=== PATIENT | female | born 1990 | race Caucasian/White ===

== ENCOUNTER 2017-10-27 07:47 | Emergency (ER) | payer SELFPAY ==
--- OUTSIDE RECORDS SUMMARY | 2017-10-27 07:49 | XMS REPORT ---
:1990 Author Organization [employer] Care Team Providers Name Role Phone Yaw Corrales Provider Role Unavailable Allergies, Adverse Reactions, Alerts Substance Reaction Event Type N.K.D.A. Info Not Available Non Drug Allergy Problems Problem Type Condition Code Onset Dates Condition Status Problem Pelvic pain R10.2 Active Problem Encounter for gynecological Z01.419 Active examination without abnormal finding Problem control counseling Z30.09 Active Assessment Pelvic pain R10.2 Active Problem Reactive depression F32.9 Active Assessment control counseling Z30.09 Active Medications No Known Medications Results Name Result Date Reference Range Unit Abnormality Flag TEST URINE ----RESULTS NEG 20170728 URINALYSIS AUTO W/O SCOPE (30740) ----PROTEIN NEG 20170728 ----pH 5.5 20170728 ----NIT NEG 20170728 ----ABBY NEG 20170728 ----URO 0.2 20170728 ----SPECIFIC GRAVITY 1.030 20170728 ----BLO NEG 20170728 ----BILIRUBIN NEG 20170728 ----KETONES NEG 20170728 ----GLUCOSE NEG 20170728 Summary Purpose [employer] Submission
--- OUTSIDE RECORDS SUMMARY | 2017-10-27 07:49 | XMS REPORT ---
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
[2017-10-27 08:40] LABS: Absolute Lymphocytes (CBC) 2.5 K/uL (0.7-4.9); Absolute Monocytes 0.5 K/uL (0.1-1.3); Absolute Neutrophil 3.5 K/uL (1.8-8.0); Basophils % 1.1 % (0-1.3); Eosinophils % 0.5 % (0-4.4); Hematocrit 36.7 % (36.0-45.0); Lymphocytes % 37.8 % (15.3-44.8); MCH 30.9 pg (27.0-35.0); MCV 88.4 fL (80-100); MPV 8.6 fL (7.6-11.3); RBC Red Blood Cell Count 4.15 M/uL (3.86-4.86)
[2017-10-27 09:39] LABS: BUN Blood Urea Nitrogen 7 mg/dL (7-18); Bicarbonate 25 mmol/L (21-32); Glucose Level 88 mg/dL (74-106); HCG, Quantitative 43 mIU/mL (1-3); Potassium 3.5 mmol/L (3.5-5.1); Sodium Level 138 mmol/L (136-145)
--- NOTE | 2017-10-27 10:57 | RAD REPORT ---
EXAM DESCRIPTION: US - Transvaginal OB - 10/27/2017 10:39 am CLINICAL HISTORY: Positive study, beta HCG 43, abdominal pain pelvic cramping COMPARISON: None. TECHNIQUE: Endovaginal sonography performed. FINDINGS: Endometrial stripe is approximately 14 mm. There is no gestational sac or sac remnant iden tifiable within the uterus. Uterus is retroflexed. No myometrial mass identifiable. Both ovaries are identifiable. There is a 15 millimeter involuting or complex right ovarian cyst. No adnexal mass to s uspect ectopic . No fallopian tube dilatation. Uterus is 7.6 x 5.8 x 5.9 cm. Doppler evaluat ion shows normal blood flow within the ovarian stroma. No abnormal blood or fluid collection in the cul-de-sac. IMPRESSION: No intrauterine gestational sac or sac remnant identifiable. No endometrial abnormality. No adnexal mass or other abnormality to suspect ectopic . Provided history indicated a very low beta HCG value. Follow-up sonography could be performed if ther e are rising HCG values and continued symptoms.
--- NOTE | 2017-10-27 11:04 | ER ---
Nurse's Notes [facility] Name: Clementine Pope Age: 26 yrs Sex: Female : 1990 Arrival Date: 10/27/2017 Time: 07:50 Bed DIS1 Private MD: None, None Diagnosis: Less than 8 weeks gestation of Presentation: 10/27 07:58 Presenting complaint: Patient states: had positive UPT on Monday, started having iw vaginal bleeding and abd pain this morning, bleeding was similar to a period but tapered off. Transition of care: patient was not received from another setting of care. Onset of symptoms was October 27, 2017. Risk Assessment: Do you want to hurt yourself or someone else? Patient reports no desire to harm self or others. Initial Sepsis Screen: Does the patient meet any 2 criteria? No. Patient's initial sepsis screen is negative. Does the patient have a suspected source of infection? No. Patient's initial sepsis screen is negative. Care prior to arrival: None. 07:58 Method Of Arrival: Ambulatory 07:58 Acuity: PRANAY 3 iw METAL WELDER: 08:00 4, Full Term 3, Premature 0, 0, Living 3, LMP 09/18/2017 iw 08:08 4, 0, Living 3, LMP 09/18/2017 kb Historical: - Allergies: 08:00 No Known Allergies; iw - Home Meds: 08:00 None [Active]; iw - PMHx: 08:00 Anxiety; Ovarian cyst; PID; iw - PSHx: 08:01 Appendectomy; ovarian cyst; iw - Immunization history:: Adult Immunizations. - Ebola Screening: : Patient negative for fever greater than or equal to 101.5 degrees Fahrenheit, and additional compatible Ebola Virus Disease symptoms Patient denies exposure to infectious person Patient denies travel to an Ebola-affected area in the 21 days before illness onset No symptoms or risks identified at this time. Screenin:00 Abuse screen: Denies threats or abuse. Denies injuries from another. Nutritional jl7 screening: No deficits noted. Tuberculosis screening: No symptoms or risk factors identified. Fall Risk IV access (20 points). Total Penn Fall Scale indicates No Risk (0-24 pts). Assessment: 08:00 Obstetrical Assessment: Patient reports Abdominal pain. General: Appears in no apparent jl7 distress. uncomfortable, Behavior is calm, cooperative, appropriate for age. Pain: Complains of pain in left upper quadrant and left lower quadrant Pain does not radiate. Pain currently is 6 out of 10 on a pain scale. Neuro: Level of Consciousness is awake, alert, obeys commands, Oriented to person, place, time, situation. Cardiovascular: Patient's skin is warm and dry. Respiratory: Airway is patent Respiratory effort is even, unlabored, Respiratory pattern is regular, symmetrical. GI: Abdomen is flat, non-distended, Abd is soft X 4 quads Abdomen is tender to palpation in left upper quadrant. : Urine is clear, Reports vaginal bleeding that is bright red. EENT: No signs and/or symptoms were reported regarding the EENT system. Derm: Skin is pink, warm \T\ dry. Musculoskeletal: No signs and/or symptoms reported regarding the musculoskeletal system. 09:00 Reassessment: No changes from previously documented assessment. Patient and/or family jl7 updated on plan of care and expected duration. Pain level reassessed. Patient is alert, oriented x 3, equal unlabored respirations, skin warm/dry/pink. 10:00 Reassessment: Patient and/or family updated on plan of care and expected duration. Pain jl7 level reassessed. Patient is alert, oriented x 3, equal unlabored respirations, skin warm/dry/pink. 11:00 Reassessment: Pt will be discharged once RhoGAM is received from blood bank. jl7 Vital Signs: 08:00 BP 108 / 84; Pulse 73; Resp 16; Temp 98.2; Pulse Ox 100% on R/A; iw 09:18 BP 103 / 65; Pulse 72; Resp 17; Pulse Ox 99% on R/A; tw2 10:09 BP 103 / 61; Pulse 70; Resp 16 S; Pulse Ox 100% on R/A; jl7 11:00 BP 103 / 64; Pulse 71; Resp 16; Pulse Ox 100% ; jl7 12:00 BP 104 / 69; Pulse 70; Resp 16; Pulse Ox 100% ; jl7 12:47 BP 102 / 68; Pulse 69; Resp 16; Pulse Ox 98% ; jl7 ED Course: 07:50 Patient arrived in ED. mr 07:50 None, None is Private Physician. mr 07:54 [facility] kb 07:54 Louie Sweet MD is Attending Physician. kb 07:55 Greta Heard, RN is Primary Nurse. jl7 07:59 Triage completed. iw 08:00 Arm band placed on. iw 08:00 Patient has correct armband on for positive identification. Placed in gown. Bed in low jl7 position. Call light in reach. Side rails up X 1. Pulse ox on. NIBP on. Warm blanket given. 08:20 Initial lab(s) drawn, by me, sent to lab. Urine collected: clean catch specimen, clear. jl7 Inserted saline lock: 20 gauge in right forearm, using aseptic technique. Blood collected. 10:15 Patient taken to ultrasound. via wheelchair. aa4 10:38 US Transvaginal Ob In Process Unspecified. EDMS 10:38 Ultrasound completed. Patient moved back from ultrasound. aa4 11:00 Awaiting: RhoGAM from blood bank. jl7 11:03 Isha Corrales MD is Referral Physician. kb 12:48 No provider procedures requiring assistance completed. IV discontinued, intact, jl7 bleeding controlled, No redness/swelling at site. Pressure dressing applied. Administered Medications: 12:30 Drug: RhoGAM (Human) 300 mcg Route: IM; Site: right deltoid; jl7 12:48 Follow up: Response: No adverse reaction jl7 Point of Care Testing: Urine : 08:30 hCG Reading: Positive; Control Reading: Negative; jl7 Outcome: 11:03 Discharge ordered by . kb 12:48 Discharged to home ambulatory. jl7 12:48 Condition: stable 12:48 Discharge instructions given to patient, Instructed on discharge instructions, follow up and referral plans. Demonstrated understanding of instructions, follow-up care. 12:48 Patient left the ED. jl7 Signatures: Dispatcher [employer] EDMS Clara Casas FNP-C FNP-Ghislaine Juarez Irene, RN RN Leandra Finch aa4 Camila Clark, SWATHI RN tw2 Greta Heard, SWATHI RN jl7
--- NOTE | 2017-10-27 11:04 | EDPHYS ---
Physician Documentation [facility] Name: Clementine Pope Age: 26 yrs Sex: Female : 1990 Arrival Date: 10/27/2017 Time: 07:50 Bed DIS1 Private MD: None, None ED Physician Louie Sweet HPI: 10/27 08:08 This 26 yrs old Female presents to ER via Ambulatory with complaints of kb Vaginal Bleeding, + Preg <12wks. 08:08 The patient presents to the emergency department with abdominal pain, of the right kb lower quadrant and left lower quadrant, that started this morning, described as constant, vaginal bleeding, that is light. course: care: none, Leakage of Fluid: none appreciated, Ultrasound: the patient has not had an ultrasound, Risk/complications: no obvious risks or complications are appreciated. Previous pregnancies: in previous pregnancies patient has had vaginal delivery, placental previa. Associated signs and symptoms: Pertinent positives: abdominal pain, vaginal bleeding, Pertinent negatives: chest pain, diarrhea, dysuria, fever, frequency, nausea, ruptured membranes, seizure, shortness of breath, vaginal discharge, vomiting. The patient has not experienced similar symptoms in the past. The patient has not recently seen a physician. Pt states she woke up with period-like bleeding that has gotten bark scaler and lower abd pain. Positive test this week. . INTEGRATION DIRECTOR: 08:00 4, Full Term 3, Premature 0, 0, Living 3, LMP 09/18/2017 iw 08:08 4, 0, Living 3, LMP 09/18/2017 kb Historical: - Allergies: 08:00 No Known Allergies; iw - Home Meds: 08:00 None [Active]; iw - PMHx: 08:00 Anxiety; Ovarian cyst; PID; iw - PSHx: 08:01 Appendectomy; ovarian cyst; iw - Immunization history:: Adult Immunizations. - Ebola Screening: : Patient negative for fever greater than or equal to 101.5 degrees Fahrenheit, and additional compatible Ebola Virus Disease symptoms Patient denies exposure to infectious person Patient denies travel to an Ebola-affected area in the 21 days before illness onset No symptoms or risks identified at this time. ROS: 08:08 Constitutional: Negative for fever, chills, and weight loss, Cardiovascular: Negative kb for chest pain, palpitations, and edema, Respiratory: Negative for shortness of breath, cough, wheezing, and pleuritic chest pain, MS/Extremity: Negative for injury and deformity, Skin: Negative for injury, rash, and discoloration, Neuro: Negative for headache, weakness, numbness, tingling, and seizure. 08:08 Abdomen/GI: Positive for abdominal pain, Negative for nausea, vomiting, and diarrhea, constipation, abdominal cramps, abdominal distension. 08:08 : Positive for vaginal bleeding. Exam: 08:08 Constitutional: This is a well developed, well nourished patient who is awake, alert, kb and in no acute distress. Head/Face: Normocephalic, atraumatic. Chest/axilla: Normal chest wall appearance and motion. Nontender with no deformity. No lesions are appreciated. Cardiovascular: Regular rate and rhythm with a normal S1 and S2. No gallops, murmurs, or rubs. Normal PMI, no JVD. No pulse deficits. Respiratory: Lungs have equal breath sounds bilaterally, clear to auscultation and percussion. No rales, rhonchi or wheezes noted. No increased work of breathing, no retractions or nasal flaring. Skin: Warm, dry with normal turgor. Normal color with no rashes, no lesions, and no evidence of cellulitis. MS/ Extremity: Pulses equal, no cyanosis. Neurovascular intact. Full, normal range of motion. Neuro: Awake and alert, GCS 15, oriented to person, place, time, and situation. Cranial nerves II-XII grossly intact. Motor strength 5/5 in all extremities. Sensory grossly intact. Cerebellar exam normal. Normal gait. 08:08 Abdomen/GI: Inspection: abdomen appears normal, Bowel sounds: normal, in all quadrants, Palpation: soft, in all quadrants, nontender, in the right upper quadrant and right lower quadrant, mild abdominal tenderness, in the left upper quadrant and left lower quadrant. Vital Signs: 08:00 BP 108 / 84; Pulse 73; Resp 16; Temp 98.2; Pulse Ox 100% on R/A; iw 09:18 BP 103 / 65; Pulse 72; Resp 17; Pulse Ox 99% on R/A; tw2 10:09 BP 103 / 61; Pulse 70; Resp 16 S; Pulse Ox 100% on R/A; jl7 11:00 BP 103 / 64; Pulse 71; Resp 16; Pulse Ox 100% ; jl7 12:00 BP 104 / 69; Pulse 70; Resp 16; Pulse Ox 100% ; jl7 12:47 BP 102 / 68; Pulse 69; Resp 16; Pulse Ox 98% ; jl7 MDM: 07:54 Patient medically screened. kb 08:08 Data reviewed: vital signs, nurses notes. Data interpreted: Pulse oximetry: on room air kb is 100 %. Interpretation: normal. 11:02 Counseling: I had a detailed discussion with the patient and/or guardian regarding: the kb historical points, exam findings, and any diagnostic results supporting the discharge/admit diagnosis, lab results, radiology results, the need for outpatient follow up, an OB/Gyne specialist, to return to the emergency department if symptoms worsen or persist or if there are any questions or concerns that arise at home. ED course: Educated on need for repeat Hcg in 48 hours. Verbal understanding received. . 10/27 07:57 Order name: Quantitative Hcg; Complete Time: 09:51 kb 10/27 07:57 Order name: Abo/rh Typing 10/27 07:57 Order name: Basic Metabolic Panel; Complete Time: 09:51 kb 10/27 07:57 Order name: CBC with Diff; Complete Time: 08:42 kb 10/27 08:36 Order name: Urine Dipstick--Ancillary (enter results); Complete Time: 12:19 ag 10/27 08:36 Order name: Urine --Ancillary (enter results); Complete Time: 12:19 ag 10/27 07:57 Order name: Urine Test (obtain specimen); Complete Time: 09:05 kb 10/27 09:52 Order name: US Transvaginal Ob; Complete Time: 10:59 kb 10/27 11:17 Order name: Rh Typing [facility] 10/27 11:17 Order name: Antibody Screen [facility] 10/27 11:17 Order name: Fetalscreen [facility] 10/27 11:17 Order name: Cord Rh type [facility] 10/27 11:17 Order name: Rhogam [facility] 10/27 07:57 Order name: IV Saline Lock; Complete Time: 09:05 kb 10/27 07:57 Order name: Labs collected and sent; Complete Time: 09:05 kb 10/27 07:57 Order name: NPO; Complete Time: 09:05 kb 10/27 07:57 Order name: Urine Dipstick-Ancillary (obtain specimen); Complete Time: 09:06 kb Administered Medications: 12:30 Drug: RhoGAM (Human) 300 mcg Route: IM; Site: right deltoid; jl7 12:48 Follow up: Response: No adverse reaction 7 Point of Care Testing: Urine : 08:30 hCG Reading: Positive; Control Reading: Negative; jl7 Disposition: 10/27/17 11:03 Discharged to Home. Impression: Less than 8 weeks gestation of . - Condition is Stable. - Discharge Instructions: First Trimester of , [id number]. - Medication Reconciliation Form, Thank You Letter, Antibiotic Education, Prescription Opioid Use form. - Follow up: Emergency Department; When: As needed; Reason: Worsening of condition. Follow up: Isha Corrales MD; When: 2 - 3 days; Reason: Recheck today's complaints, Continuance of care, Re-evaluation by your physician. Addendum: 10/28/2017 16:02 Co-signature as Attending Physician, Louie Sweet MD. g s Signatures: Dispatcher [employer] EDMS Clara Casas, TECHNICAL SALES DIRECTOR-C TECHNICAL SALES DIRECTOR-Ckb Krissy Ojeda RN RN iw Leal, Jahala, RN RN jl7 Starr, Gregory, MD MD Corrections: (The following items were deleted from the chart) 10/27 11:03 11:03 10/27/2017 11:03 Discharged to Home. Impression: Less than 8 weeks gestation of kb . Condition is Stable. Forms are Medication Reconciliation Form, Thank You Letter, Antibiotic Education, Prescription Opioid Use. Follow up: Emergency Department; When: As needed; Reason: Worsening of condition. Follow up: Private Physician; When: 2 - 3 days; Reason: Recheck today's complaints, Continuance of care, Re-evaluation by your physician. kb 12:48 11:03 10/27/2017 11:03 Discharged to Home. Impression: Less than 8 weeks gestation of jl7 . Condition is Stable. Discharge Instructions: First Trimester of , [id number]. Forms are Medication Reconciliation Form, Thank You Letter, Antibiotic Education, Prescription Opioid Use. Follow up: Emergency Department; When: As needed; Reason: Worsening of condition. Follow up: Isha Leeskhi; When: 2 - 3 days; Reason: Recheck today's complaints, Continuance of care, Re-evaluation by your physician. kb
[2017-10-27 12:18] LABS: Urine Blood NEGATIVE (NEG); Urine Glucose NEGATIVE (NEG); Urine Protein NEGATIVE (NEG); Urine Specific Gravity 1.025 (1.005-1.030)
[2017-10-27 12:54] VITALS: TEMP 98.2
[2017-10-27 12:59] VITALS: BP 102/68; O2SAT 98
== END 2017-10-27 12:48 | disposition home or self-care (01) ==
LOC: ER 07:47
DX: O46.91 Antepartum hemorrhage, unspecified, first trimester (principal); Z3A.01 Less than 8 weeks gestation of pregnancy
CPT/HCPCS: 36415; 76817; 80048; 81003; 81025; 84702; 85025; 86850; 86900; 86901; 96372; 99284; J2790

== ENCOUNTER 2018-10-15 10:49 | Emergency (ER) | payer SELFPAY ==
--- OUTSIDE RECORDS SUMMARY | 2018-10-15 10:54 | XMS REPORT ---
:1990 Author Organization [employer] Care Team Providers Name Role Phone Yaw Corrales Provider Role Unavailable Allergies, Adverse Reactions, Alerts Substance Reaction Event Type N.K.D.A. Info Not Available Non Drug Allergy Problems Problem Type Condition Code Onset Dates Condition Status Problem control counseling Z30.09 Active Problem Pelvic pain R10.2 Active Problem , location unknown Z34.90 Active Problem Encounter for gynecological Z01.419 Active examination without abnormal finding Problem Reactive depression F32.9 Active Medications No Known Medications Results No Known Results Summary Purpose [employer] Submission
--- OUTSIDE RECORDS SUMMARY | 2018-10-15 10:54 | XMS REPORT ---
:1990 Author Organization [employer] Care Team Providers Name Role Phone Yaw Corrales Provider Role Unavailable Allergies No Known Allergies Problems Problem Type Condition Code Onset Dates Condition Status Problem control counseling Z30.09 Active Problem Pelvic pain R10.2 Active Problem , location unknown Z34.90 Active Assessment , location unknown Z34.90 Active Problem Encounter for gynecological Z01.419 Active examination without abnormal finding Problem Reactive depression F32.9 Active Medications No Known Medications Results No Known Results Summary Purpose [employer] Submission
--- OUTSIDE RECORDS SUMMARY | 2018-10-15 10:54 | XMS REPORT ---
:1990 Author Organization [employer] Care Team Providers Name Role Phone Yaw Corrales Provider Role Unavailable Allergies, Adverse Reactions, Alerts Substance Reaction Event Type N.K.D.A. Info Not Available Non Drug Allergy Problems Problem Type Condition Code Onset Dates Condition Status Problem control counseling Z30.09 Active Problem Pelvic pain R10.2 Active Problem , location unknown Z34.90 Active Assessment Encounter for insertion of mirena Z30.430 Active IUD Problem Encounter for gynecological Z01.419 Active examination without abnormal finding Problem Reactive depression F32.9 Active Medications Medication Code Code Instructions Start End Status Dosage System Date Date Mirena (52 MG) [facility] 53126522294 20 MCG/24HR Active as directed Intrauterine Results No Known Results Summary Purpose [employer] Submission
--- OUTSIDE RECORDS SUMMARY | 2018-10-15 10:54 | XMS REPORT ---
:1990 Author Organization [employer] Care Team Providers Name Role Phone Yaw Corrales Provider Role Unavailable Allergies, Adverse Reactions, Alerts Substance Reaction Event Type N.K.D.A. Info Not Available Non Drug Allergy Problems Problem Type Condition Code Onset Dates Condition Status Assessment IUD surveillance Z30.431 Active Assessment Left lower quadrant pain R10.32 Active Problem Left lower quadrant pain R10.32 Active Problem , location unknown Z34.90 Active Problem IUD surveillance Z30.431 Active Problem Encounter for gynecological Z01.419 Active examination without abnormal finding Problem Reactive depression F32.9 Active Problem control counseling Z30.09 Active Problem Pelvic pain R10.2 Active Medications Medication Code Code Instructions Start End Status Dosage System Date Date Mirena (52 MG) [facility] 50040103044 20 MCG/24HR Active as directed Intrauterine Results No Known Results Summary Purpose [employer] [facility] Submission
--- OUTSIDE RECORDS SUMMARY | 2018-10-15 10:54 | XMS REPORT ---
[...] ----RESULTS NEG 20170728 URINALYSIS AUTO W/O SCOPE (94435) ----PROTEIN NEG 20170728 ----pH 5.5 20170728 ----NIT NEG 20170728 ----ABBY NEG 20170728 ----URO 0.2 20170728 ----SPECIFIC GRAVITY 1.030 20170728 ----BLO NEG 20170728 ----BILIRUBIN NEG 20170728 ----KETONES NEG 20170728 ----GLUCOSE NEG 20170728 Summary Purpose [employer] Submission
--- OUTSIDE RECORDS SUMMARY | 2018-10-15 10:54 | XMS REPORT ---
[...] Reactive depression F32.9 Active Medications Medication Code System Code Instructions Start End Date Status Dosage Date Dicloxacillin [facility] 04330-351 400 MG Orally Dec 12, Dec 19, Active QID Sodium 5-01 QUID 2018 2018 Results No Known Results Summary Purpose [employer] Submission
--- OUTSIDE RECORDS SUMMARY | 2018-10-15 10:54 | XMS REPORT ---
:1990 Author Organization [employer] Care Team Providers Name Role Phone Yaw Corrales Provider Role Unavailable Allergies No Known Allergies Problems Problem Type Condition Code Onset Dates Condition Status Problem Pelvic pain R10.2 Active Problem Encounter for gynecological Z01.419 Active examination without abnormal finding Problem control counseling Z30.09 Active Problem Reactive depression F32.9 Active Medications No Known Medications Results No Known Results Summary Purpose [employer] Submission
[2018-10-15 11:41] LABS: Absolute Lymphocytes (CBC) 1.9 K/uL (0.7-4.9); Basophils % 1.1 % (0-1.3); Hematocrit 40.2 % (36.0-45.0); Lymphocytes % 48.5 % (15.3-44.8); MPV 9.4 fL (7.6-11.3); RBC Red Blood Cell Count 4.36 M/uL (3.86-4.86)
[2018-10-15 11:55] LABS: BUN Blood Urea Nitrogen 9 mg/dL (7-18); Bicarbonate 26 mmol/L (21-32); Glucose Level 84 mg/dL (74-106); Potassium 3.9 mmol/L (3.5-5.1); Sodium Level 139 mmol/L (136-145)
[2018-10-15 12:06] LABS: HCG, Quantitative < 1 mIU/mL (1-3)
[2018-10-15 12:08] LABS: Urine Blood NEGATIVE (NEG); Urine Glucose NEGATIVE (NEG); Urine Protein NEGATIVE (NEG)
[2018-10-15 12:30] LABS: Blood Morphology Comment NOT SEEN (NOT SEEN); Platelet Estimate ADEQ
--- NOTE | 2018-10-15 14:11 | ER ---
Nurse's Notes [facility] Name: Clementine Pope Age: 27 yrs Sex: Female : 1990 Arrival Date: 10/15/2018 Time: 10:53 Bed 25 Private MD: Diagnosis: Unspecified abdominal pain Presentation: 10/15 10:54 Presenting complaint: Sent by Dr. Holman for positive home tests + Mirena in hb place. LMP >2yrs ago. Reports low back pain and mild lower abdominal cramping x 3 days. Denies vaginal bleeding. Transition of care: patient was not received from another setting of care. Onset of symptoms was October 13, 2018. Risk Assessment: Do you want to hurt yourself or someone else? Patient reports no desire to harm self or others. Initial Sepsis Screen: Does the patient meet any 2 criteria? No. Patient's initial sepsis screen is negative. Does the patient have a suspected source of infection? No. Patient's initial sepsis screen is negative. Care prior to arrival: None. 10:54 Method Of Arrival: Ambulatory 10:54 Acuity: PRANAY 3 hb Historical: - Allergies: 10:56 No Known Allergies; hb - Home Meds: 10:56 citalopram 20 mg tab 1 tab once daily [Active]; hb - PMHx: 10:56 Anxiety; Ovarian cyst; PID; hb - PSHx: 10:56 Appendectomy; ovarian cyst; hb - Immunization history:: Adult Immunizations up to date. - Social history:: Smoking status: Patient/guardian denies using tobacco. - Ebola Screening: : No symptoms or risks identified at this time. Screenin:41 Abuse screen: Denies threats or abuse. Denies injuries from another. Nutritional aj1 screening: No deficits noted. Tuberculosis screening: No symptoms or risk factors identified. 14:17 Fall Risk None identified. rv Assessment: 11:41 General: Appears in no apparent distress. comfortable, Behavior is calm, cooperative, aj1 appropriate for age. Pain: Complains of pain in low back area, right lower quadrant and left lower quadrant. Neuro: Level of Consciousness is awake, alert, obeys commands, Oriented to person, place, time, situation. Cardiovascular: Patient's skin is warm and dry. Respiratory: Airway is patent Respiratory effort is even, unlabored, Respiratory pattern is regular, symmetrical. GI: Abdomen is flat, non-distended, Reports cramping. : Reports positive test at home Denies vaginal bleeding. EENT: No signs and/or symptoms were reported regarding the EENT system. Derm: No signs and/or symptoms reported regarding the dermatologic system. Skin is pink, warm \T\ dry. normal. Musculoskeletal: No signs and/or symptoms reported regarding the musculoskeletal system. Circulation, motion, and sensation intact. 12:45 Reassessment: Patient appears in no apparent distress at this time. No changes from aj1 previously documented assessment. Patient and/or family updated on plan of care and expected duration. Pain level reassessed. Patient is alert, oriented x 3, equal unlabored respirations, skin warm/dry/pink. Vital Signs: 10:56 BP 114 / 54; Pulse 84; Resp 16; Temp 98.3; Pulse Ox 100% on R/A; Weight 63.5 kg; Height hb 5 ft. 5 in. (165.10 cm); Pain 1/10; 14:16 BP 110 / 57; Pulse 86; Resp 16; Temp 98; Pulse Ox 99% on R/A; rv 10:56 Body Mass Index 23.30 (63.50 kg, 165.10 cm) hb ED Course: 10:53 Patient arrived in ED. mr 10:56 Triage completed. hb 10:56 Arm band placed on. hb 10:58 David Gutierrez NP is PHCP. pm1 10:59 Jesus Alberto Santacruz MD is Attending Physician. pm1 11:18 Dalia Raman RN is Primary Nurse. aj1 11:25 Initial lab(s) drawn, by il, sent to lab. Inserted saline lock: 20 gauge in left aj1 antecubital area, using aseptic technique. Blood collected. 11:41 Patient has correct armband on for positive identification. Bed in low position. Call aj1 light in reach. Side rails up X 1. 11:41 No provider procedures requiring assistance completed. aj1 14:17 IV discontinued, intact, bleeding controlled, No redness/swelling at site. Pressure rv dressing applied. Administered Medications: No medications were administered Outcome: 14:11 Discharge ordered by . pm1 14:17 Discharged to home ambulatory. rv 14:17 Condition: good 14:17 Discharge instructions given to patient, Instructed on discharge instructions, follow up and referral plans. Demonstrated understanding of instructions, follow-up care. 14:29 Patient left the ED. rv Signatures: Dalia Raman, RN RN aj1 Xiomara Schwartz mr David Gutierrez, [employer] CONTENT MANAGEMENT CONSULTANT pm1 Pattie Marcum, RN RN Dejan Orozco RN RN rv
--- NOTE | 2018-10-15 14:12 | EDPHYS ---
Physician Documentation [facility] Name: Clementine Pope Age: 27 yrs Sex: Female : 1990 Arrival Date: 10/15/2018 Time: 10:53 Bed 25 Private MD: ED Physician Jesus Alberto Santacruz HPI: 10/15 11:11 This 27 yrs old Female presents to ER via Ambulatory with complaints of pm1 Positive test with Mirena. 11:11 The patient presents with Right lower quadrant cramping for the past 3 days 1/10 pain pm1 when present. Patient with 2 positive tests at home. She is concerned because she has the Mirena. Contacted her OB, Dr. Holman and instructed to report to the ER for evaluation . Onset: The symptoms/episode began/occurred 3 day(s) ago. The symptoms do not radiate. Associated signs and symptoms: Pertinent positives: Pertinent negatives: nausea, vomiting, and diarrhea. The symptoms are described as crampy. Modifying factors: The symptoms are alleviated by nothing, the symptoms are aggravated by nothing. Severity of pain: in the emergency department the pain is a 0 / 10. Patient has had appendectomy. Historical: - Allergies: 10:56 No Known Allergies; hb - Home Meds: 10:56 citalopram 20 mg tab 1 tab once daily [Active]; hb - PMHx: 10:56 Anxiety; Ovarian cyst; PID; hb - PSHx: 10:56 Appendectomy; ovarian cyst; hb - Immunization history:: Adult Immunizations up to date. - Social history:: Smoking status: Patient/guardian denies using tobacco. - Ebola Screening: : No symptoms or risks identified at this time. ROS: 11:11 Constitutional: Negative for fever, chills, and weight loss, Eyes: Negative for injury, pm1 pain, redness, and discharge, ENT: Negative for injury, pain, and discharge, Neck: Negative for injury, pain, and swelling, Cardiovascular: Negative for chest pain, palpitations, and edema, Respiratory: Negative for shortness of breath, cough, wheezing, and pleuritic chest pain. 11:11 Back: Negative for injury and pain, : Negative for injury, bleeding, discharge, and swelling, MS/Extremity: Negative for injury and deformity, Skin: Negative for injury, rash, and discoloration, Neuro: Negative for headache, weakness, numbness, tingling, and seizure. 11:11 Abdomen/GI: Positive for abdominal pain, Negative for nausea, vomiting, and diarrhea, constipation. Exam: 11:11 Constitutional: This is a well developed, well nourished patient who is awake, alert, pm1 and in no acute distress. Head/Face: Normocephalic, atraumatic. Neck: Trachea midline, no thyromegaly or masses palpated, and no cervical lymphadenopathy. Supple, full range of motion without nuchal rigidity, or vertebral point tenderness. No Meningismus. Chest/axilla: Normal chest wall appearance and motion. Nontender with no deformity. No lesions are appreciated. Cardiovascular: Regular rate and rhythm with a normal S1 and S2. No gallops, murmurs, or rubs. Normal PMI, no JVD. No pulse deficits. Respiratory: Lungs have equal breath sounds bilaterally, clear to auscultation and percussion. No rales, rhonchi or wheezes noted. No increased work of breathing, no retractions or nasal flaring. 11:11 Back: No spinal tenderness. No costovertebral tenderness. Full range of motion. Skin: Warm, dry with normal turgor. Normal color with no rashes, no lesions, and no evidence of cellulitis. MS/ Extremity: Pulses equal, no cyanosis. Neurovascular intact. Full, normal range of motion. 11:11 Abdomen/GI: Inspection: abdomen appears normal, Bowel sounds: normal, Palpation: abdomen is soft and non-tender, in all quadrants, mass, is not appreciated, rebound tenderness, is not appreciated. 11:11 Neuro: Orientation: is normal, Motor: is normal, moves all fours, Sensation: is normal, no obvious gross deficits. Vital Signs: 10:56 BP 114 / 54; Pulse 84; Resp 16; Temp 98.3; Pulse Ox 100% on R/A; Weight 63.5 kg; Height hb 5 ft. 5 in. (165.10 cm); Pain 1/10; 14:16 BP 110 / 57; Pulse 86; Resp 16; Temp 98; Pulse Ox 99% on R/A; rv 10:56 Body Mass Index 23.30 (63.50 kg, 165.10 cm) hb MDM: 10:59 Patient medically screened. pm1 14:02 Data reviewed: vital signs. Data interpreted: Pulse oximetry: on room air is 100 %. pm1 Interpretation: normal. 10/15 11:11 Order name: Quantitative Hcg; Complete Time: 14:00 pm1 10/15 11:11 Order name: Abo/rh Typing; Complete Time: 12:04 pm1 10/15 11:11 Order name: Basic Metabolic Panel; Complete Time: 14:00 pm1 10/15 11:11 Order name: CBC with Diff; Complete Time: 14:00 pm1 10/15 11:40 Order name: Urine Dipstick--Ancillary (enter results); Complete Time: 14:00 bd 10/15 11:40 Order name: Urine --Ancillary (enter results); Complete Time: 14:00 bd 10/15 11:11 Order name: Urine Test (obtain specimen); Complete Time: 11:38 pm1 10/15 11:11 Order name: IV Saline Lock; Complete Time: 11:38 pm1 10/15 11:11 Order name: Labs collected and sent; Complete Time: 11:38 pm1 10/15 11:11 Order name: NPO; Complete Time: 11:19 pm1 10/15 11:11 Order name: Urine Dipstick-Ancillary (obtain specimen); Complete Time: 11:38 pm1 10/15 12:32 Order name: Manual Differential EDMS Administered Medications: No medications were administered Disposition: 10/16 07:47 Co-signature as Attending Physician, Jesus Alberto Santacruz MD I agree with the assessment and wa plan of care. Disposition: 10/15/18 14:11 Discharged to Home. Impression: Unspecified abdominal pain. - Condition is Stable. - Discharge Instructions: Abdominal Pain, Adult. - Medication Reconciliation Form, Thank You Letter, Antibiotic Education, Prescription Opioid Use form. - Follow up: Emergency Department; When: As needed; Reason: Worsening of condition. Follow up: Private Physician; When: 2 - 3 days; Reason: Recheck today's complaints, Continuance of care, Re-evaluation by your physician. - Problem is new. - Symptoms have improved. Signatures: Dispatcher [employer] EDMS David Gutierrez NP DEICER KIT ASSEMBLER pm1 Pattie Marcum RN RN hb Appiah, William, MD MD wa Vicente, Ronaldo, RN RN rv Corrections: (The following items were deleted from the chart) 10/15 11:44 11:12 Transvaginal Ob+US.RAD.BRANDONZ ordered. EDCT EDMS 14:29 14:11 10/15/2018 14:11 Discharged to Home. Impression: Unspecified abdominal pain. rv Condition is Stable. Forms are Medication Reconciliation Form, Thank You Letter, Antibiotic Education, Prescription Opioid Use. Follow up: Emergency Department; When: As needed; Reason: Worsening of condition. Follow up: Private Physician; When: 2 - 3 days; Reason: Recheck today's complaints, Continuance of care, Re-evaluation by your physician. Problem is new. Symptoms have improved. pm1
[2018-10-15 14:47] VITALS: BP 110/57; TEMP 98; O2SAT 99
== END 2018-10-15 14:29 | disposition home or self-care (01) ==
LOC: ER 10:49
DX: R10.9 Unspecified abdominal pain (principal); F41.9 Anxiety disorder, unspecified
CPT/HCPCS: 36415; 80048; 81003; 81025; 84702; 85025; 86900; 86901; 99283

== ENCOUNTER 2018-12-08 02:16 | Emergency (ER) | payer SELFPAY ==
[2018-12-08] MEDS ORDERED: LIDOCAINE 1% MPF 30 ML VIAL ONE (02:38)
[2018-12-08] MEDS ORDERED: TETANUS & DIPHTHERIA TOX,ADULT 0.5 ML VIAL ONE (02:38)
--- NOTE | 2018-12-08 02:59 | EDPHYS ---
Physician Documentation [facility] Name: Clementine Pope Age: 27 yrs Sex: Female : 1990 Arrival Date: 12/08/2018 Time: 02:18 Bed 6 Private MD: ED Physician Louie Sweet HPI: 12/08 02:52 This 27 yrs old Female presents to ER via Ambulatory with complaints of jmm Laceration To Foot. 02:52 The patient presents with an injury, a laceration. Onset: The symptoms/episode jmm began/occurred acutely. Modifying factors: The symptoms are alleviated by nothing, the symptoms are aggravated by nothing. The patient has not experienced similar symptoms in the past. This is a 27 year old female with no chronic medical conditions that presents to the ED with complaints of laceration to her right foot after a picture frame fell on top of it. Denies other injury. No UTD on tetanus immunzation. . Historical: - Allergies: 02:32 No Known Allergies; aa1 - Home Meds: 02:32 None [Active]; aa1 - PMHx: 02:32 Anxiety; Ovarian cyst; PID; aa1 - PSHx: 02:32 Appendectomy; ovarian cyst; aa1 - Immunization history:: Last tetanus immunization: more than 5 years. - Social history:: Smoking status: Patient/guardian denies using tobacco. - Ebola Screening: : No symptoms or risks identified at this time. ROS: 02:52 Constitutional: Negative for fever, chills, and weight loss, Cardiovascular: Negative jmm for chest pain, palpitations, and edema, Respiratory: Negative for shortness of breath, cough, wheezing, and pleuritic chest pain. 02:52 MS/extremity: Positive for injury or acute deformity, laceration. 02:52 Skin: Positive for laceration(s). 02:52 All other systems are negative. Exam: 02:52 Constitutional: This is a well developed, well nourished patient who is awake, alert, jmm and in no acute distress. Head/Face: atraumatic. Eyes: EOMI, no conjunctival erythema appreciated ENT: Moist Mucus Membranes Neck: Trachea midline, Supple Chest/axilla: Normal chest wall appearance and motion. Cardiovascular: Regular rate and rhythm. No edema appreciated Respiratory: Normal respirations, no respiratory distress appreciated Abdomen/GI: Non distended, soft Back: Normal ROM 02:52 Musculoskeletal/extremity: ROM: intact in all extremities, full dorsalis pulse noted to the right foot, compartments are soft, NVI. 02:52 Skin: laceration noted to the right anterior foot, no active bleeding appreciated. 02:52 Neuro: Orientation: is normal, Mentation: is normal, Memory: is normal. 02:52 Psych: Behavior/mood is pleasant, cooperative. Vital Signs: 02:32 BP 114 / 54; Pulse 97; Resp 16; Temp 98.0; Pulse Ox 99% ; Weight 54.43 kg; Height 5 ft. aa1 5 in. (165.10 cm); Pain 3/10; 02:32 Body Mass Index 19.97 (54.43 kg, 165.10 cm) aa1 Laceration: 02:57 Wound Repair of 3cm ( 1.2in ) subcutaneous laceration to dorsum of right foot. Distal jmm neuro/vascular/tendon intact. Anesthesia: Local anesthetic administered with 5 mls of 1% lidocaine. Wound prep: Moderate cleansing with betadine by me. Skin closed with 6 5-0 Prolene using simple sutures and sterile technique. Patient tolerated well. MDM: 02:29 Patient medically screened. sebastien 02:56 Data reviewed: vital signs, nurses notes. Counseling: I had a detailed discussion with sebastien the patient and/or guardian regarding: the historical points, exam findings, and any diagnostic results supporting the discharge/admit diagnosis, the need for outpatient follow up, to return to the emergency department if symptoms worsen or persist or if there are any questions or concerns that arise at home. 02:57 ED course: Patient given wound infection return precautions. Patient understood and sebastien agrees with the plan of care. . Administered Medications: 02:39 Drug: Tetanus-Diphtheria Toxoid Adult 0.5 ml {Caustic Loader: [employer]. Exp: ea 07/24/2020. Lot #: [id number]. } Route: IM; Site: left deltoid; 03:12 Follow up: Response: No adverse reaction prabhu 02:39 Drug: Lidocaine (1 %) 20 ml {Note: medication administered by provider.} Volume: 20 ml; ea Route: Infiltration; 03:12 Follow up: Response: No adverse reaction prabhu Disposition: 12/08/18 02:58 Discharged to Home. Impression: Laceration of foot. - Condition is Stable. - Discharge Instructions: Laceration Care, Adult. - Medication Reconciliation Form, Thank You Letter, Antibiotic Education, Prescription Opioid Use form. - Follow up: Private Physician; When: 1 week; Reason: Recheck today's complaints, Continuance of care, Re-evaluation by your physician. Addendum: 12/11/2018 14:49 Co-signature as Attending Physician, Louie Sweet MD. g s Signatures: Tessa Moreau, RN RN aa1 Herman Hairston PA PA jmm Pena, Laura RN RN lp1 Mattie Gant RN RN Louie Coronado MD MD gs Corrections: (The following items were deleted from the chart) 12/08 03:12 02:58 12/08/2018 02:58 Discharged to Home. Impression: Laceration of foot. Condition is lp1 Stable. Forms are Medication Reconciliation Form, Thank You Letter, Antibiotic Education, Prescription Opioid Use. Follow up: Private Physician; When: 1 week; Reason: Recheck today's complaints, Continuance of care, Re-evaluation by your physician. [facility]
--- NOTE | 2018-12-08 02:59 | ER ---
Nurse's Notes [facility] Name: Clementine Pope Age: 27 yrs Sex: Female : 1990 Arrival Date: 12/08/2018 Time: 02:18 Bed 6 Private MD: Diagnosis: Laceration of foot Presentation: 12/08 02:31 Presenting complaint: Patient states: she stepped on the bed frame to grab something aa1 and slipped cutting the dorsum of her R foot. Laceration noted with bleeding controlled. Transition of care: patient was not received from another setting of care. Complicating Factors: There are no complicating factors for this patient. Onset of symptoms was December 08, 2018. Risk Assessment: Do you want to hurt yourself or someone else? Patient reports no desire to harm self or others. Initial Sepsis Screen: Does the patient meet any 2 criteria? No. Patient's initial sepsis screen is negative. Does the patient have a suspected source of infection? Yes: Skin breakdown/wound. Care prior to arrival: None. 02:31 Method Of Arrival: Ambulatory aa1 02:31 Acuity: PRANAY 4 aa1 Triage Assessment: 02:32 General: Appears in no apparent distress. comfortable, Behavior is calm, cooperative, aa1 appropriate for age. Historical: - Allergies: 02:32 No Known Allergies; aa1 - Home Meds: 02:32 None [Active]; aa1 - PMHx: 02:32 Anxiety; Ovarian cyst; PID; aa1 - PSHx: 02:32 Appendectomy; ovarian cyst; aa1 - Immunization history:: Last tetanus immunization: more than 5 years. - Social history:: Smoking status: Patient/guardian denies using tobacco. - Ebola Screening: : No symptoms or risks identified at this time. Screenin:28 Abuse screen: Denies threats or abuse. Nutritional screening: No deficits noted. ea Tuberculosis screening: No symptoms or risk factors identified. Fall Risk None identified. Assessment: 02:30 General: Appears in no apparent distress. Behavior is appropriate for age. Pain: ea Complains of pain in dorsum of right foot. Neuro: Level of Consciousness is awake, alert, obeys commands, Oriented to person, place, time, situation. Cardiovascular: Patient's skin is warm and dry. Respiratory: Airway is patent Respiratory effort is even, unlabored, Respiratory pattern is regular, symmetrical. Derm: Skin is pink, warm \T\ dry. Musculoskeletal: Circulation, motion, and sensation intact. Injury Description: Laceration sustained to dorsum of right foot is jagged, 0.5 to 2.5 cm long, not bleeding, was sustained 30-60 minutes ago. is bleeding a small amount. Vital Signs: 02:32 BP 114 / 54; Pulse 97; Resp 16; Temp 98.0; Pulse Ox 99% ; Weight 54.43 kg; Height 5 ft. aa1 5 in. (165.10 cm); Pain 3/10; 02:32 Body Mass Index 19.97 (54.43 kg, 165.10 cm) aa1 ED Course: 02:18 Patient arrived in ED. ag3 02:26 Louie Sweet MD is Attending Physician. gs 02:28 Arm band placed on right wrist. Patient placed in an exam room, on a stretcher, on ea pulse oximetry. 02:29 [facility] 02:29 Patient has correct armband on for positive identification. Bed in low position. Call ea light in reach. Side rails up X2. 02:31 Triage completed. aa1 02:39 Mattie Gant, SWATHI is Primary Nurse. ea 03:00 Assist provider with laceration repair on dorsum of right foot that was 2.5 cm. or less lp1 using sutures. Set up tray. Performed by Herman LORA. 03:11 Patient did not have IV access during this emergency room visit. ea 03:11 Patient did not have IV access during this emergency room visit. lp1 Administered Medications: 02:39 Drug: Tetanus-Diphtheria Toxoid Adult 0.5 ml {Security Shift Manager: [employer]. Exp: ea 07/24/2020. Lot #: [id number]. } Route: IM; Site: left deltoid; 03:12 Follow up: Response: No adverse reaction ea 02:39 Drug: Lidocaine (1 %) 20 ml {Note: medication administered by provider.} Volume: 20 ml; ea Route: Infiltration; 03:12 Follow up: Response: No adverse reaction ea Outcome: 02:58 Discharge ordered by . sebastien 03:11 Discharged to home ambulatory, with family. lp1 03:11 Condition: good 03:11 Discharge instructions given to patient, Instructed on discharge instructions, follow up and referral plans. Demonstrated understanding of instructions, follow-up care. 03:12 Patient left the ED. lp1 Signatures: Tessa Moreau, RN RN aa1 Herman Hairston PA PA jmm Pena, Laura, RN RN lp1 Mattie Gant RN RN ea Starr, Gregory, MD MD gs Gomez, Alice ag3 Corrections: (The following items were deleted from the chart) 03:12 03:11 No provider procedures requiring assistance completed. prabhu pelletier
[2018-12-08 03:32] VITALS: BP 114/54; TEMP 98; O2SAT 99
== END 2018-12-08 03:12 | disposition home or self-care (01) ==
LOC: ER 02:16
PROC: 0JQQ0ZZ Repair Right Foot Subcutaneous Tissue and Fascia, Open Approach (ICD-10-PCS; principal; 2018-12-08)
DX: S91.311A Laceration without foreign body, right foot, initial encounter (principal); W26.8XXA Contact with other sharp object(s), not elsewhere classified, initial encounter; Y93.89 Activity, other specified; Y92.9 Unspecified place or not applicable; Z23 Encounter for immunization
CPT/HCPCS: 90471; 90714; 99283

== ENCOUNTER 2018-12-31 18:11 | Emergency (ER) | payer SELFPAY ==
[2018-12-31] MEDS ORDERED: LIDOCAINE 1% MPF 2 ML AMPULE ONE (19:47)
--- NOTE | 2018-12-31 20:04 | EDPHYS ---
Physician Documentation [facility] Name: Clementine Pope Age: 28 yrs Sex: Female : 1990 Arrival Date: 12/31/2018 Time: 18:14 Bed 24 Private MD: ED Physician Humza Mcgarry HPI: 12/31 20:00 This 28 yrs old Female presents to ER via Ambulatory with complaints of silvestre Finger laceration. 20:00 The patient or guardian reports a laceration, irregular, 1 cm(s). The complaints affect silvestre the MCP of left ring finger. Context: The problem was sustained at work. Onset: The symptoms/episode began/occurred just prior to arrival. Modifying factors: The symptoms are alleviated by nothing, the symptoms are aggravated by nothing. Associated signs and symptoms: The patient has no apparent associated signs or symptoms. Severity of symptoms: At their worst the symptoms were mild, moderate, in the emergency department the symptoms are unchanged. The patient has experienced similar episodes in the past, a few times. 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 - Social history:: Smoking status: Patient/guardian denies using tobacco. - Ebola Screening: : No symptoms or risks identified at this time. - Family history:: not pertinent. ROS: 20:00 Constitutional: Negative for fever, chills, and weight loss, Eyes: Negative for injury, silvestre pain, redness, and discharge, ENT: Negative for injury, pain, and discharge, Neck: Negative for injury, pain, and swelling, Cardiovascular: Negative for chest pain, palpitations, and edema, Respiratory: Negative for shortness of breath, cough, wheezing, and pleuritic chest pain, Abdomen/GI: Negative for abdominal pain, nausea, vomiting, diarrhea, and constipation, Back: Negative for injury and pain, : Negative for injury, bleeding, discharge, and swelling, Skin: Negative for injury, rash, and discoloration, Neuro: Negative for headache, weakness, numbness, tingling, and seizure, Psych: Negative for depression, anxiety, suicide ideation, homicidal ideation, and hallucinations, Allergy/Immunology: Negative for hives, rash, and allergies, Endocrine: Negative for neck swelling, polydipsia, polyuria, polyphagia, and marked weight changes, Hematologic/Lymphatic: Negative for swollen nodes, abnormal bleeding, and unusual bruising. 20:00 MS/extremity: Positive for laceration, pain, swelling, of the palmar aspect of proximal phalanx of left ring finger. Exam: 20:00 Constitutional: This is a well developed, well nourished patient who is awake, alert, silvestre and in no acute distress. Head/Face: Normocephalic, atraumatic. Eyes: Pupils equal round and reactive to light, extra-ocular motions intact. Lids and lashes normal. Conjunctiva and sclera are non-icteric and not injected. Cornea within normal limits. Periorbital areas with no swelling, redness, or edema. ENT: Nares patent. No nasal discharge, no septal abnormalities noted. Tympanic membranes are normal and external auditory canals are clear. Oropharynx with no redness, swelling, or masses, exudates, or evidence of obstruction, uvula midline. Mucous membranes moist. Neck: Trachea midline, no thyromegaly or masses palpated, and no cervical lymphadenopathy. Supple, full range of motion without nuchal rigidity, or vertebral point tenderness. No Meningismus. Chest/axilla: Normal chest wall appearance and motion. Nontender with no deformity. No lesions are appreciated. Cardiovascular: Regular rate and rhythm with a normal S1 and S2. No gallops, murmurs, or rubs. Normal PMI, no JVD. No pulse deficits. Respiratory: Lungs have equal breath sounds bilaterally, clear to auscultation and percussion. No rales, rhonchi or wheezes noted. No increased work of breathing, no retractions or nasal flaring. Abdomen/GI: Soft, non-tender, with normal bowel sounds. No distension or tympany. No guarding or rebound. No evidence of tenderness throughout. Back: No spinal tenderness. No costovertebral tenderness. Full range of motion. MS/ Extremity: Pulses equal, no cyanosis. Neurovascular intact. Full, normal range of motion. Neuro: Awake and alert, GCS 15, oriented to person, place, time, and situation. Cranial nerves II-XII grossly intact. Motor strength 5/5 in all extremities. Sensory grossly intact. Cerebellar exam normal. Normal gait. Psych: Awake, alert, with orientation to person, place and time. Behavior, mood, and affect are within normal limits. 20:00 Skin: Appearance: Color: normal in color, pink, Temperature: normal temperature, Moisture: normal moisture, petechiae, not noted, ecchymosis, not noted, injury, laceration(s), the wound is approximately 1 cm(s), with a depth of .25 cm(s), of the . Vital Signs: 18:52 BP 125 / 77; Pulse 74; Resp 16 S; Temp 98.5(O); Pulse Ox 100% on R/A; Pain 0/10; jl7 20:35 BP 123 / 78; Pulse 71; Resp 18; Temp 98; Pulse Ox 100% on R/A; mg2 Laceration: 20:04 Wound Repair of 1cm ( 0.4in ) subcutaneous laceration to left hand and palmar aspect of silvestre proximal phalanx of left ring finger. Irregularly shaped.. Skin/tissue flap noted.. Distal neuro/vascular/tendon intact. Anesthesia: Local anesthetic administered with 3 mls of 1% lidocaine w/ Epi. Wound prep: Simple cleansing by me. Skin closed with 2 5-0 Prolene using interrupted sutures and sterile technique. Dressed with Neosporin. Patient tolerated well. MDM: 19:27 Patient medically screened. [facility] 20:02 Data reviewed: vital signs, nurses notes. [facility] Administered Medications: No medications were administered Disposition: 12/31/18 20:04 Discharged to Home. Impression: Laceration without foreign body of left hand - ring finger, volar surface. - Condition is Stable. - Discharge Instructions: Laceration Care, Adult, Laceration Care, Adult, [id number]. - Prescriptions for Keflex 500 mg Oral Capsule - take 1 capsule by ORAL route every 6 hours for 7 days; 28 capsule. Tylenol- Codeine #3 300-30 mg Oral Tablet - take 2 tablet by ORAL route every 6 hours As needed; 30 tablet. - Medication Reconciliation Form, Thank You Letter, Antibiotic Education, Prescription Opioid Use form. - Follow up: Private Physician; When: 5 - 6 days; Reason: Recheck today's complaints, Continuance of care, Re-evaluation by your physician. - Problem is new. - Symptoms have improved. Signatures: Humza Mcgarry MD MD cha Leal, Jahala RN RN jl7 Teofilo Delgadillo, RN RN mg2 Corrections: (The following items were deleted from the chart) 20:41 20:04 12/31/2018 20:04 Discharged to Home. Impression: Laceration without foreign body mg2 of left hand - ring finger, volar surface. Condition is Stable. Forms are Medication Reconciliation Form, Thank You Letter, Antibiotic Education, Prescription Opioid Use. Follow up: Private Physician; When: 5 - 6 days; Reason: Recheck today's complaints, Continuance of care, Re-evaluation by your physician. Problem is new. Symptoms have improved. silvestre
--- NOTE | 2018-12-31 20:04 | ER ---
Nurse's Notes [facility] Name: Clementine Pope Age: 28 yrs Sex: Female : 1990 Arrival Date: 12/31/2018 Time: 18:14 Bed 24 Private MD: Diagnosis: Laceration without foreign body of left hand-ring finger, volar surface Presentation: 12/31 18:50 Presenting complaint: Patient states: Ring on left ring finger got caught on something jl7 and cut my finger, laceration noted to [place] side of left ring finger. Transition of care: patient was not received from another setting of care. Onset of symptoms was December 31, 2018. Risk Assessment: Do you want to hurt yourself or someone else? Patient reports no desire to harm self or others. Initial Sepsis Screen: Does the patient meet any 2 criteria? No. Patient's initial sepsis screen is negative. Does the patient have a suspected source of infection? No. Patient's initial sepsis screen is negative. Care prior to arrival: None. 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 - Social history:: Smoking status: Patient/guardian denies using tobacco. - Ebola Screening: : No symptoms or risks identified at this time. - Family history:: not pertinent. Screenin:34 Abuse screen: Denies threats or abuse. Denies injuries from another. Nutritional mg2 screening: No deficits noted. Tuberculosis screening: No symptoms or risk factors identified. Fall Risk None identified. Assessment: 20:32 General: Appears in no apparent distress. comfortable, Behavior is calm, cooperative. mg2 Pain: Complains of pain in MCP of left ring finger Pain does not radiate. Pain currently is 4 out of 10 on a pain scale. Quality of pain is described as aching, Pain began suddenly. Neuro: Level of Consciousness is awake, alert, obeys commands, Oriented to person, place, time, situation. Cardiovascular: No deficits noted. Respiratory: Airway is patent Respiratory effort is even, unlabored, Respiratory pattern is regular, symmetrical. GI: No signs and/or symptoms were reported involving the gastrointestinal system. : No signs and/or symptoms were reported regarding the genitourinary system. EENT: No signs and/or symptoms were reported regarding the EENT system. Derm: Wound noted MCP of left ring finger Wound is fresh open wound. Musculoskeletal: Circulation, motion, and sensation intact. Capillary refill < 3 seconds. Injury Description: Laceration sustained to MCP of left ring finger is clean, 0.5 to 2.5 cm long, not bleeding, was sustained 1-2 hours ago. no active bleeding noted at this time. Vital Signs: 18:52 BP 125 / 77; Pulse 74; Resp 16 S; Temp 98.5(O); Pulse Ox 100% on R/A; Pain 0/10; jl7 20:35 BP 123 / 78; Pulse 71; Resp 18; Temp 98; Pulse Ox 100% on R/A; mg2 ED Course: 18:14 Patient arrived in ED. mr 18:52 Triage completed. jl7 18:52 Arm band placed on right wrist. jl7 18:53 Patient placed in waiting room, Patient notified of wait time. jl7 19:27 Humza Mcgarry MD is Attending Physician. silvestre 19:35 Teofilo Delgadillo, RN is Primary Nurse. mg2 20:34 Assist provider with laceration repair on MCP of left ring finger that was 2.5 cm. or mg2 less using sutures. Set up tray. Performed by Humza Mcgarry MD Dressed with 4X4s, Neosporin, Patient tolerated well. Patient did not have IV access during this emergency room visit. 20:35 Patient has correct armband on for positive identification. Door closed. mg2 Administered Medications: No medications were administered Outcome: 20:04 Discharge ordered by . silvestre 20:36 Discharged to home ambulatory. mg2 20:36 Condition: stable 20:36 Discharge instructions given to patient, Instructed on discharge instructions, follow up and referral plans. medication usage, wound care, Demonstrated understanding of instructions, follow-up care, medications, wound care, Prescriptions given X 2. 20:41 Patient left the ED. mg2 Signatures: Humza Mcgarry MD MD cha Rivera, Mary mr Heard, Greta, RN RN jl7 Teofilo Delgadillo, RN RN mg2
[2018-12-31 20:51] VITALS: O2SAT 100
[2018-12-31 20:53] VITALS: BP 123/78; TEMP 98
== END 2018-12-31 20:41 | disposition home or self-care (01) ==
LOC: ER 18:11
PROC: 0JQK0ZZ Repair Left Hand Subcutaneous Tissue and Fascia, Open Approach (ICD-10-PCS; principal; 2018-12-31)
DX: S61.215A Laceration without foreign body of left ring finger without damage to nail, initial encounter (principal); W45.8XXA Other foreign body or object entering through skin, initial encounter; Y93.9 Activity, unspecified; Y92.89 Other specified places as the place of occurrence of the external cause; Y99.8 Other external cause status
CPT/HCPCS: 99283; J2001

== ENCOUNTER 2020-06-02 15:31 | Emergency (ER) | payer OTHER ==
--- OUTSIDE RECORDS SUMMARY | 2020-06-02 15:35 | XMS REPORT | Continuity of Care Document ---
:1990 Author Organization [facility] t Address [address] [place] [address] Care Team Providers Name Role Phone Unavailable Unavailable Unavailable Problems Condition Condition Condition Status Onset Resolution Last Treating Co mments Source Name Details Category Date Date Treatment Clinician Date Pelvic Pelvic Problem Active [facility] Encounter Encounter Problem Active [facility] for for [facility] gynecologi gynecologi Me moria miguel a miguel a l examinatio examinatio Ou tpati n without n without ent abnormal abnormal Clinic s finding finding Problem Active [facility] control control [facility] counseling counseling Me moria l [facility]ics Reactive Reactive Problem Active [facility] k[facility] , , Problem Active [facility] unknown unknown [facility] IUD IUD Problem Active [facility] surveillan surveillan Nancy kes - ce ce [facility] Left lower Left lower Problem Active [facility] quadrant quadrant [facility] Possible Possible Diagnosis Active [facility] Allergies, Adverse Reactions, Alerts This patient has no known allergies or adverse reactions. Medications Ordered Filled Start Stop Current Ordering Indication Dosage Frequency Signature Comments Components Source Medication Medication Date Date Medication? Clinician (SIG) Name Name Mirena (52 Mirena (52 Yes Yaw as [facility]) MG) Yoanakhi directed [facility] Procedures This patient has no known procedures. Encounters Start End Encounter Admission Attending Care Care Encounter Source Date/Time Date/Time Type Type Clinicians Facility Department ID 2018-10-15 2018-10-15 [facility] [id number] [facility] 09:27:00 09:27:00 t [facility] 2018-02-23 2018-02-23 [facility] [id number] [facility] 09[facility]30:00 09:30:00 [facility] 2017-12-11 2017-12-11 [facility] [id number] [facility] 10[facility]25:00 10:25:00 t Womens Womens [facility] 2017-11-29 2017-11-29 [facility] [id number] [facility] 11:00:00 11:00:00 t Women Womens [facility] 2017-10-31 2017-10-31 [facility] [id number] 15:13[facility]00 15:13:00 [facility] 2017-10-30 2017-10-30 [facility] [id number] 08:20:00 08:20:00 t [facility] 2017-09-06 2017-09-06 [facility] [id number] 13:01:00 13:01:00 t [facility] 2017-07-28 2017-07-28 [facility] [id number] [facility] 10:30:00 10:30:00 t [facility] Results This patient has no known results.
[2020-06-02 19:56] LABS: Basophils % 0.5 % (0-1.3); Lymphocytes % 24.3 % (15.3-44.8); MPV 8.4 fL (7.6-11.3); RBC Red Blood Cell Count 4.04 M/uL (3.86-4.86)
[2020-06-02] MEDS ORDERED: ONDANSETRON 4 MG/2 ML VIAL ONE (20:06)
[2020-06-02] MEDS ORDERED: NA CHLORIDE 0.9% 1,000 ML ONE (20:06)
--- NOTE | 2020-06-02 20:11 | RAD REPORT ---
EXAM DESCRIPTION: CT - Head Brain Wo Cont - 06/02/2020 7:52 pm CLINICAL HISTORY: HEADACHE Headache, drowsiness COMPARISON: HEAD BRAIN W O CONTRAST dated 12/30/2014; HEAD BRAIN W O CONTRAST dated 04/23/2013 TECHNIQUE: All CT scans are performed using dose optimization technique as appropriate and may inclu de automated exposure control or mA/KV adjustment according to patient size. FINDINGS: No intracranial hemorrhage, hydrocephalus or extra-axial fluid collection.No areas of brai n edema or evidence of midline shift. The paranasal sinuses and mastoids are clear. The calvarium is intact. IMPRESSION: No acute intracranial abnormality.
--- NOTE | 2020-06-02 20:16 | ER ---
Nurse's Notes [facility] Name: Clementine Pope Age: 29 yrs Sex: Female : 1990 Arrival Date: 06/02/2020 Time: 15:43 Bed 8 Private MD: Diagnosis: related conditions, unspecified, first trimester;Headache Presentation: 06/02 15:54 Chief complaint: Patient states: Migraine PEÑA for 2 days with nausea. Sent in by Dr. kaylyn Segundo (OB) for eval since tylenol and benadryl aren't helping. She is 11 weeks . G5, P3. Coronavirus screen: Client denies travel out of the [place] in the last 14 days. At this time, the client does not indicate any symptoms associated with coronavirus-19. Ebola Screen: Patient denies travel to an Ebola-affected area in the 21 days before illness onset. Initial Sepsis Screen: Does the patient meet any 2 criteria? HR > 90 bpm. No. Patient's initial sepsis screen is negative. Does the patient have a suspected source of infection? Yes: Other: PEÑA. Risk Assessment: Do you want to hurt yourself or someone else? Patient reports no desire to harm self or others. Onset of symptoms was June 01, 2020. 15:54 Method Of Arrival: Ambulatory [facility] 15:54 Acuity: PRANAY 3 ll1 Triage Assessment: 20:58 Headache History: The patient has had previous headaches. General: Appears in no mg2 apparent distress. Pain: Pain currently is 1 out of 10 on a pain scale. Also complains of no other associated symptoms. Pain: Complains of pain in right base of the skull. 20:59 Pain: Pain began gradually, 2-3 days ago. 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 - Social history:: Smoking status: Patient denies any tobacco usage or history of. - Family history:: not pertinent. Screenin:16 Abuse screen: Denies threats or abuse. Denies injuries from another. Nutritional mg2 screening: No deficits noted. Tuberculosis screening: No symptoms or risk factors identified. Fall Risk None identified. Assessment: 19:17 General: Appears in no apparent distress. comfortable, Behavior is calm, cooperative. mg2 Pain: Complains of pain in head. Neuro: Level of Consciousness is awake, alert, obeys commands, Oriented to person, place, time, situation. Cardiovascular: Capillary refill < 3 seconds Patient's skin is warm and dry. Respiratory: Airway is patent Respiratory effort is even, unlabored, Respiratory pattern is regular, symmetrical. GI: No signs and/or symptoms were reported involving the gastrointestinal system. : No signs and/or symptoms were reported regarding the genitourinary system. EENT:. EENT: Reports pain in right orbital area. Derm: Skin is intact, is healthy with good turgor, Skin is pink, warm \T\ dry. normal. Musculoskeletal: Circulation, motion, and sensation intact. Capillary refill < 3 seconds. Vital Signs: 15:54 BP 121 / 78; Pulse 102; Resp 17; Temp 98.7; Pulse Ox 97% ; Pain 9/10; ll1 19:16 BP 121 / 77; Pulse 69; Resp 18; Pulse Ox 100% on R/A; mg2 20:57 BP 120 / 80; Pulse 70; Resp 17; Temp 98; Pulse Ox 100% on R/A; Pain 2/10; mg2 [place] Coma Score: 19:43 Eye Response: spontaneous(4). Verbal Response: oriented(5). Motor Response: obeys silvestre commands(6). Total: 15. ED Course: 15:43 Patient arrived in ED. as 15:54 Arm band placed on. ll1 15:56 Triage completed. ll1 19:16 Teofilo Delgadillo, RN is Primary Nurse. mg2 19:17 Patient has correct armband on for positive identification. Door closed. Warm blanket mg2 given. 19:18 No provider procedures requiring assistance completed. mg2 19:27 Humza Mcgarry MD is Attending Physician. silvestre 19:52 CT Head Brain wo Cont: shield In Process Unspecified. EDMS 20:00 Inserted saline lock: 20 gauge in right antecubital area, using aseptic technique. mg2 Blood collected. 20:15 Liam Gutierrez MD is Referral Physician. silvestre 20:15 Amos Vernon MD is Referral Physician. silvestre 20:57 IV discontinued, intact, bleeding controlled, No redness/swelling at site. Pressure mg2 dressing applied. Administered Medications: 20:10 Drug: NS 0.9% 1000 ml Route: IV; Rate: 1 bolus; Site: right antecubital; mg2 20:58 Follow up: Response: No adverse reaction; IV Status: Completed infusion; IV Intake: mg2 1000ml 20:10 Drug: Zofran (Ondansetron) 4 mg Route: IVP; Site: right antecubital; mg2 20:46 Follow up: Response: No adverse reaction mg2 20:25 Drug: Tylenol 650 mg Route: PO; wh 20:46 Follow up: Response: No adverse reaction mg2 Intake: 20:58 IV: 1000ml; Total: 1000ml. mg2 Outcome: 20:15 Discharge ordered by . [facility] 20:58 Discharged to home ambulatory. mg2 20:58 Condition: stable 20:58 Discharge instructions given to patient, Instructed on discharge instructions, follow up and referral plans. medication usage, Demonstrated understanding of instructions, follow-up care, medications, Prescriptions given X 3. 20:59 Patient left the ED. mg2 Signatures: Dispatcher [employer] EDMS Humza Mcgarry MD MD cha Martinez, Amelia as Habalo, Winsy, RN RN Teofilo Delgadillo RN RN mg2 Tan Signh RN RN ll1
--- NOTE | 2020-06-02 20:16 | EDPHYS ---
Physician Documentation [facility] Name: Clementine Pope Age: 29 yrs Sex: Female : 1990 Arrival Date: 06/02/2020 Time: 15:43 Bed 8 Private MD: DANIELLE Physician Humza Mcgarry HPI: 06/02 19:41 This 29 yrs old Female presents to ER via Ambulatory with complaints of silvestre Headache. 19:41 The patient complains of pain to the top of head, forehead, left frontal area, left silvestre side of the back of head, left occipital area, left base of the skull, right frontal area, right side of the back of head, right occipital area and right base of the skull. The patient describes the headache as aching. Onset: The symptoms/episode began/occurred 10 week(s) ago. Associated signs and symptoms: The patient has no apparent associated signs or symptoms. Severity of symptoms: At its worst the pain was mild, moderate, in the emergency department the pain is unchanged. Headache History: The patient has had previous headaches and this one is similar to previous episodes. The symptoms are alleviated by nothing. the symptoms are aggravated by nothing. The patient has experienced similar episodes in the past, multiple times. 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 - Social history:: Smoking status: Patient denies any tobacco usage or history of. - Family history:: not pertinent. ROS: 19:41 Constitutional: Negative for fever, chills, and weight loss, Eyes: Negative for injury, silvestre pain, redness, and discharge, ENT: Negative for injury, pain, and discharge, Neck: Negative for injury, pain, and swelling, Cardiovascular: Negative for chest pain, palpitations, and edema, Respiratory: Negative for shortness of breath, cough, wheezing, and pleuritic chest pain, Abdomen/GI: Negative for abdominal pain, nausea, vomiting, diarrhea, and constipation, Back: Negative for injury and pain, : Negative for injury, bleeding, discharge, and swelling, MS/Extremity: Negative for injury and deformity, Skin: Negative for injury, rash, and discoloration, Psych: Negative for depression, anxiety, suicide ideation, homicidal ideation, and hallucinations, Allergy/Immunology: Negative for hives, rash, and allergies, Endocrine: Negative for neck swelling, polydipsia, polyuria, polyphagia, and marked weight changes, Hematologic/Lymphatic: Negative for swollen nodes, abnormal bleeding, and unusual bruising. 19:41 : Positive for 11 week , A1. 19:41 Neuro: Positive for headache. Exam: 19:41 Constitutional: This is a well developed, well nourished patient who is awake, alert, silvestre and in no acute distress. Head/Face: Normocephalic, atraumatic. Eyes: Pupils equal round and reactive to light, extra-ocular motions intact. Lids and lashes normal. Conjunctiva and sclera are non-icteric and not injected. Cornea within normal limits. Periorbital areas with no swelling, redness, or edema. ENT: Nares patent. No nasal discharge, no septal abnormalities noted. Tympanic membranes are normal and external auditory canals are clear. Oropharynx with no redness, swelling, or masses, exudates, or evidence of obstruction, uvula midline. Mucous membranes moist. Neck: Trachea midline, no thyromegaly or masses palpated, and no cervical lymphadenopathy. Supple, full range of motion without nuchal rigidity, or vertebral point tenderness. No Meningismus. Chest/axilla: Normal chest wall appearance and motion. Nontender with no deformity. No lesions are appreciated. Cardiovascular: Regular rate and rhythm with a normal S1 and S2. No gallops, murmurs, or rubs. Normal PMI, no JVD. No pulse deficits. Respiratory: Lungs have equal breath sounds bilaterally, clear to auscultation and percussion. No rales, rhonchi or wheezes noted. No increased work of breathing, no retractions or nasal flaring. Abdomen/GI: Soft, non-tender, with normal bowel sounds. No distension or tympany. No guarding or rebound. No evidence of tenderness throughout. Back: No spinal tenderness. No costovertebral tenderness. Full range of motion. Female : Normal external genitalia. Skin: Warm, dry with normal turgor. Normal color with no rashes, no lesions, and no evidence of cellulitis. MS/ Extremity: Pulses equal, no cyanosis. Neurovascular intact. Full, normal range of motion. Neuro: Awake and alert, GCS 15, oriented to person, place, time, and situation. Cranial nerves II-XII grossly intact. Motor strength 5/5 in all extremities. Sensory grossly intact. Cerebellar exam normal. Normal gait. Psych: Awake, alert, with orientation to person, place and time. Behavior, mood, and affect are within normal limits. 19:41 Neck: External neck: is normal, no acute changes, C-spine: appears grossly normal, no acute changes, Thyroid: appears normal, Trachea: is midline with no obvious abnormalities, no acute changes, ROM/movement: is normal, no acute changes, Meningeal signs: are not present, Kernig's sign is negative, Brudzinski's sign is negative, nuchal rigidity, is not appreciated, Lymph nodes: no appreciated lymphadenopathy. Vital Signs: 15:54 BP 121 / 78; Pulse 102; Resp 17; Temp 98.7; Pulse Ox 97% ; Pain 9/10; ll1 19:16 BP 121 / 77; Pulse 69; Resp 18; Pulse Ox 100% on R/A; mg2 20:57 BP 120 / 80; Pulse 70; Resp 17; Temp 98; Pulse Ox 100% on R/A; Pain 2/10; mg2 Guillermina Coma Score: 19:43 Eye Response: spontaneous(4). Verbal Response: oriented(5). Motor Response: obeys silvestre commands(6). Total: 15. MDM: 19:27 Patient medically screened. silvestre 19:43 Differential diagnosis: cluster headache, hyponatremia, migraine, neoplasm, subdural silvestre hematoma, temporal arteritis, tension headache. Data reviewed: vital signs, nurses notes, lab test result(s), radiologic studies, CT scan. 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 Test interpretation: by ED physician or midlevel provider:. Counseling: I had a detailed discussion with the patient and/or guardian regarding: the historical points, exam findings, and any diagnostic results supporting the discharge/admit diagnosis, lab results, radiology results, the need for outpatient follow up, for definitive care, a neurologist, an OB/Gyne specialist. 06/02 19:40 Order name: CBC with Diff; Complete Time: 20:14 [facility] 06/02 19:40 Order name: Comprehensive Metabolic Panel [facility] 06/02 19:40 Order name: CT Head Brain wo Cont: shield ; Complete Time: 20:14 [facility] 06/02 19:40 Order name: Urine Culture [facility] 06/02 20:13 Order name: Urine Dipstick--Ancillary (enter results) [facility] 06/02 20:13 Order name: Urine --Ancillary (enter results) [facility] 06/02 19:40 Order name: Urine Dipstick-Ancillary (obtain specimen); Complete Time: 20:26 [facility] Administered Medications: 20:10 Drug: NS 0.9% 1000 ml Route: IV; Rate: 1 bolus; Site: right antecubital; mg2 20:58 Follow up: Response: No adverse reaction; IV Status: Completed infusion; IV Intake: mg2 1000ml 20:10 Drug: Zofran (Ondansetron) 4 mg Route: IVP; Site: right antecubital; mg2 20:46 Follow up: Response: No adverse reaction mg2 20:25 Drug: Tylenol 650 mg Route: PO; wh 20:46 Follow up: Response: No adverse reaction mg2 Disposition: 06/02/20 20:15 Discharged to Home. Impression: related conditions, unspecified, first trimester, Headache. - Condition is Stable. - Discharge Instructions: General Headache Without Cause, First Trimester of , General Headache Without Cause, Fjel-[id number]. - Prescriptions for Diclegis 10- 10 mg Oral tablet,delayed release (DR/EC) - take 1 tablet by ORAL route 3 times per day and 2 tablets at bedtime; 60 tablet. Vitamin 27- 0.8 mg Oral Tablet - take 1 tablet by ORAL route once daily; 30 tablet. Tylenol 325 mg Oral Tablet - take 2 tablet by ORAL route every 6 hours as needed; 1 bottle. - Medication Reconciliation Form, Thank You Letter, Antibiotic Education, Prescription Opioid Use form. - Follow up: Private Physician; When: 2 - 3 days; Reason: Recheck today's complaints, Continuance of care, Re-evaluation by your physician. Follow up: Liam Gutierrez; When: 2 - 3 days; Reason: Recheck today's complaints, Re-evaluation by your physician. Follow up: Amos Vernon; When: 2 - 3 days; Reason: Recheck today's complaints, Re-evaluation by your physician. - Problem is new. - Symptoms have improved. Signatures: Dispatcher [employer] Humza Zaragoza MD MD cha Habalo, Winsy, RN RN Teofilo Delgadillo, RN RN mg2 Tan Singh RN RN ll1 Corrections: (The following items were deleted from the chart) 20:59 20:15 06/02/2020 20:15 Discharged to Home. Impression: related conditions, mg2 unspecified, first trimester; Headache. Condition is Stable. Discharge Instructions: General Headache Without Cause, First Trimester of , General Headache Without Cause, Tacm-vo-[id number]. Prescriptions for Diclegis 10-10 mg Oral tablet,delayed release (DR/EC) - take 1 tablet by ORAL route 3 times per day and 2 tablets at bedtime; 60 tablet, Vitamin 27-0.8 mg Oral Tablet - take 1 tablet by ORAL route once daily; 30 tablet, Tylenol 325 mg Oral Tablet - take 2 tablet by ORAL route every 6 hours as needed; 1 bottle. and Forms are Medication Reconciliation Form, Thank You Letter, Antibiotic Education, Prescription Opioid Use. Follow up: Private Physician; When: 2 - 3 days; Reason: Recheck today's complaints, Continuance of care, Re-evaluation by your physician. Follow up: Liam Gutierrez; When: 2 - 3 days; Reason: Recheck today's complaints, Re-evaluation by your physician. Follow up: Amos Vernon; When: 2 - 3 days; Reason: Recheck today's complaints, Re-evaluation by your physician. Problem is new. Symptoms have improved. silvestre
[2020-06-02 20:17] LABS: ALT/SGPT 20 U/L (12-78); AST/SGOT 12 U/L (15-37); Albumin 3.7 g/dL (3.4-5.0); Alkaline Phosphatase 32 U/L (45-117); BUN Blood Urea Nitrogen 5 mg/dL (7-18); Bicarbonate 26 mmol/L (21-32); Bilirubin Total 0.9 mg/dL (0.2-1.0); Glucose Level 82 mg/dL (74-106); Protein, Total 7.3 g/dL (6.4-8.2); Sodium Level 137 mmol/L (136-145)
[2020-06-02] MEDS ORDERED: ACETAMINOPHEN 325 MG TABLET ONE (20:37)
[2020-06-02 22:18] LABS: Urine Blood NEGATIVE (NEG); Urine Glucose NEGATIVE (NEG); Urine Protein NEGATIVE (NEG); Urine pH 6.5 (5.0-7.0)
[2020-06-02 22:28] VITALS: O2SAT 100
[2020-06-02 22:29] VITALS: BP 120/80; TEMP 98
== END 2020-06-02 20:59 | disposition home or self-care (01) ==
LOC: ER 15:31
DX: O26.891 Other specified pregnancy related conditions, first trimester (principal); Z3A.11 11 weeks gestation of pregnancy
CPT/HCPCS: 87088; 85025; 87086; 36415; 81025; 81003; 80053; 70450; J7030; J2405; 96361; 96374; 99284

== ENCOUNTER 2020-12-17 05:09 | Inpatient (IN) | payer OTHER ==
[~2020-12-17 05:09] MED LIST: BUTORPHANOL 1 MG/ML INJ IV PRN; CARBOPROST TROME 250 MCG/ML IM PRN; METHYLERGONOVINE 0.2MG/ML AMP IM PRN; PENICILLIN 5 MU in NA CHLORIDE 0.9% 100 ML IV ONE; PROMETHAZINE INJ 25 MG/ML AMP IM PRN; Ringers Lactate 1,000 ML IV PRN
[2020-12-17 05:40] LABS: Urine Appearance CLOUDY (Clear); Urine Bilirubin NEGATIVE (Negative); Urine Blood NEGATIVE (Negative); Urine Color YELLOW (Yellow); Urine Glucose NEGATIVE (Negative); Urine Protein NEGATIVE (Negative); Urine Specific Gravity 1.015 (1.005-1.030); Urine Urobilinogen 0.2 mg/dL (0.2-1.0); Urine pH 6.5 (5.0-7.0)
[2020-12-17 05:42] LABS: Absolute Lymphocytes (CBC) 2.2 K/uL (0.7-4.9); Basophils % 0.7 % (0-1.3); Hematocrit 32.6 % (36.0-45.0); MPV 8.7 fL (7.6-11.3); RBC Red Blood Cell Count 3.55 M/uL (3.86-4.86)
[2020-12-17] MEDS ORDERED: OXYTOCIN 10 UNIT/ML ML IV ONE ×2 (05:47→11:17)
[2020-12-17 05:59] VITALS: BMI 25.2
[2020-12-17 06:00] LABS: Urine Microscopic Reflex ORDER UMIC
[2020-12-17] MEDS ORDERED: OXYTOCIN/LR 20 UNIT/1,000 ML BAG IV SCH ×2 (06:00→12:00)
[2020-12-17] MEDS ORDERED: Ringers Lactate 1,000 ML IV SCH (06:00)
[2020-12-17 06:19] LABS: Urine Bacteria 20-50 /HPF (<20); Urine RBC NONE SEEN /HPF (NONE SEEN); Urine Urothelial Cells <5 /HPF (NONE SEEN); Urine Yeast PRESENT (NONE SEEN); Urine Yeast with Hyphae PRESENT
[2020-12-17] MEDS ORDERED: LIDOCAINE 1% MPF 30 ML VIAL SQ ONE (08:00)
[2020-12-17] MEDS ORDERED: PENICILLIN 2.5 MU in NA CHLORIDE 0.9% 100 ML IV SCH (09:30)
[2020-12-17] MEDS ORDERED: INFLUENZA VACCINE (for 6+ mo) 0.5 ML DOSE IMVAC ONE (10:00)
[2020-12-17] MEDS ORDERED: ACETAMINOPHEN 500 MG TAB PO PRN (11:07)
[2020-12-17] MEDS ORDERED: DOCUSATE NA/SENNA CONC 1 TAB PO PRN (11:07)
[2020-12-17] MEDS ORDERED: IBUPROFEN 600 MG TAB PO PRN (11:07)
[2020-12-17] MEDS ORDERED: Oxycodone HCl/Acetaminophen 1 TAB TAB PO PRN ×2 (11:07)
[2020-12-17] MEDS ORDERED: DIPHENHYDRAMINE 25 MG TAB/CAP PO PRN (11:07)
[2020-12-17] MEDS ORDERED: BISACODYL 10 MG RECTAL SUPP RC PRN (11:07)
[2020-12-17] MEDS ORDERED: MEPERIDINE HCL 50 MG/ML ONE (11:11)
[2020-12-17] MEDS ORDERED: miSOPROStoL 100 MCG TAB ONE (11:12)
--- NOTE | 2020-12-17 11:50 | OP ---
Surgeon: Liam Gutierrez MD Procedure In Detail: Clementine Pope is a 29-year-old, 5, para 3, AB1, 39 weeks 2 days, for la bor induction. Used Lamaze breathing techniques and IV Stadol. Went to complete rapidly, delivered of 6 pounds 15 ounces female. Apgars 9 and 9. Nuchal cord loosely x1. Penicillin prophylaxis x3 du ring the labor. Schultze delivery of the placenta, which was inspected and noted to be intact and no rmal. The patient then experienced moderate hypotonus, 0.2 mg of Methergine IM, 10 units of Pitocin into the cervix, two 100 mcg Cytotec tablets, IV drip Pitocin, and massage and manual exploration and then curettage with Bovie curette. Uterus contracted down after that. Estimated blood loss 800 to 850 mL. Pulse in the 80-90 range. The patient had been given 25 mg of Demerol IV prior to the manua l expiration. Tolerated all procedures well. Final Diagnoses: Term intrauterine at 39 weeks 2 days, labor induction, vaginal delivery, nuchal cord, penicillin prophylaxis, moderate uterine hypotonus. NBC/MODL Voice ID: [id number] Report ID: [id number]
[2020-12-17] MEDS ORDERED: METHYLERGONOVINE 0.2 MG TAB PO PRN (12:35)
[2020-12-17] MEDS ORDERED: PENICILLIN 2.5 MU in NA CHLORIDE 0.9% 100 ML IV ONE (13:30)
--- NOTE | 2020-12-17 15:02 | PREOPHP ---
Date of Admission: 12/17/2020 History Of Present Illness: A 29-year-old 5, para 3, at 39 weeks 2 days for induction of lab or. Pros and cons of this thoroughly discussed prior to admission. Family History: The patient says there is myocardial infarction on the mother's side, exactly who no t sure. Maternal grandmother with a stroke. Paternal grandmother with diabetes. Several people in the family with cancer including breast and these are mostly grandparents. The patient is Rh negativ e, has received RhoGAM with each of her pregnancies. Past Surgical History: She has had her appendix removed, ovarian cyst removed, otherwise no surgerie s. Allergies: NO ALLERGIES. Medications: No medications prior to admission other than vitamins and iron. Social History: Does not smoke. Physical Examination: HEENT: Clear. Pupils equal, round, reactive to light and accommodation. Conjunctivae well perfused . No oral, lingual, or buccal lesions. Chest and Lungs: Clear. Heart: Without murmurs, thrills, heaves, or rubs. Breasts: Without masses on previous visit. Abdomen: Term size. Extremities: Clear without edema, cyanosis, or clubbing. Assessment And Plan: The patient is 3 to 3.5 cm, vertex -1 station, 50%, maybe 60% effaced. Rupture of membranes, clear fluid. She is barbi regularly at this time. Vital signs are all normal. She is strep positive and has received her first dose of penicillin. Labor talk given. Anticipate delivery later today. The patient has not decided yet whether she is trying to go natural or we will go with epidural, which she has done guille story. ERIKA/SCOUT Voice ID: [id number]
[2020-12-17] MEDS: miSOPROStoL 100 MCG TAB PO SCH ×2 (17:22→21:00)
[2020-12-18] MEDS: miSOPROStoL 100 MCG TAB PO SCH ×3 (01:30→09:11)
--- NOTE | 2020-12-18 10:05 | DS ---
This is a 29-year-old 5, para 3, at 39 weeks 2 days, delivered a 6-pound 15-ounce female, Apg ars 9 and 9. No episiotomy. No lacerations. Loose nuchal cord. Schultze delivery of the placenta. Noted to have moderate uterine hypotonus, was given Methergine IM, Cytotec 100 mcg 2 times orally, 10 units of Pitocin injected into the cervix. Had intrauterine exploration manually. No retained pr oducts. Light curettage with Bovie. No retained products. Uterus contracted down well thereafter. Since then, she has been afebrile, ambulating, voiding. Lochia is normal. She will be dismissed la junior today to report back to my office in 6 weeks for followup, to report any temperature elevation of 100 degrees or greater, severe pain, heavy bleeding, or any other type of abnormalities. She was be ta strep positive. Had 3 doses of penicillin during the labor and 1 dose as per the zev blackwell exploration. Immunizations, Tdap, flu shot, COVID all offered if the patient desires. She request s no analgesics on dismissal. If she does want something, we will phone in for tramadol to the local pharmacy. Final Diagnoses: Term intrauterine , 39 weeks 2 days; vaginal delivery; moderate uterine hy pertonus; penicillin prophylaxis; manual exploration of the uterus; and light curettage with Bovie cu poly. ERIKA/SCOUT Voice ID: [id number] Report ID: [id number]
[2020-12-18 10:37] VITALS: BP 107/55; TEMP 98.6
[2020-12-18] MEDS ORDERED: Rho(D) IG (HUMAN) 300 MCG SYR IM ONE (11:40)
[2020-12-18 21:48] LABS: RPR (Rapid Plasma Reagin) NON-REACT (NON-REACT)
[2020-12-19 20:54] LABS: HBsAG Nonreactive (Nonreactive)
== END 2020-12-18 12:15 | disposition home or self-care (01) | DRG 768 ==
LOC: 2ND-WC 05:09
PROVIDERS: ADMIT Specialist; ATTEND Specialist
PROC: 10E0XZZ Delivery of Products of Conception, External Approach (ICD-10-PCS; principal; 2020-12-17)
PROC: 0UB97ZZ Excision of Uterus, Via Natural or Artificial Opening (ICD-10-PCS; 2020-12-17)
PROC: 3E0234Z Introduction of Serum, Toxoid and Vaccine into Muscle, Percutaneous Approach (ICD-10-PCS; 2020-12-17)
PROC: 10907ZC Drainage of Amniotic Fluid, Therapeutic from Products of Conception, Via Natural or Artificial Opening (ICD-10-PCS; 2020-12-17)
PROC: 3E0DXGC Introduction of Other Therapeutic Substance into Mouth and Pharynx, External Approach (ICD-10-PCS; 2020-12-17)
PROC: 3E033VJ Introduction of Other Hormone into Peripheral Vein, Percutaneous Approach (ICD-10-PCS; 2020-12-17)
DX: O62.2 Other uterine inertia (principal); Z37.0 Single live birth; O99.824 Streptococcus B carrier state complicating childbirth; O26.893 Other specified pregnancy related conditions, third trimester; Z3A.39 39 weeks gestation of pregnancy; Z67.11 Type A blood, Rh negative; Z23 Encounter for immunization
CPT/HCPCS: 36415; 81003; 81015; 85014; 85025; 85461; 86592; 86850; 86870; 86900; 86901; 87086; 87088; 87340; J0595; J2175; J2210; J2540; J2550; J2590; J2790; J7120

== ENCOUNTER → 2023-03-29 | Emergency (ER) | payer OTHER ==
[~2023-03-29] MED LIST changes: -BUTORPHANOL 1 MG/ML INJ IV PRN; -CARBOPROST TROME 250 MCG/ML IM PRN; +KETOROLAC 30 MG/ML INJ ONE; -METHYLERGONOVINE 0.2MG/ML AMP IM PRN; +NA CHLORIDE 0.9% 1,000 ML ONE; +ONDANSETRON 4 MG/2 ML VIAL ONE; -PENICILLIN 5 MU in NA CHLORIDE 0.9% 100 ML IV ONE; -PROMETHAZINE INJ 25 MG/ML AMP IM PRN; -Ringers Lactate 1,000 ML IV PRN
--- OUTSIDE RECORDS SUMMARY | 2023-03-29 22:53 | XMS REPORT | Continuity of Care Document ---
Author Name Unknown Address [address] [facility] [address] [place] [address] [facility] thconnect Address [address] [facility] [address] [place] [address] Care Team Providers Care Administrative Accountant Name Role Phone Unavailable Unavailable Unavailable Problems Condition Name Condition Details Condition Category Status Onset Date Resolution Date Last Treatment Date Treating Clinician Comments Source Pelvic pain Pelvic pain Problem Active [facility] Encounter for gynecologi miguel a examinatio n without abnormal finding Encounter for gynecologi miguel a examinatio n without abnormal finding Problem Active [facility] control counseling control counseling Problem Active [facility] Reactive depression Reactive depression Problem Active [facility] , location unknown , location unknown Problem Active [facility] IUD surveillan ce IUD surveillan ce Problem Active [facility] Left lower quadrant pain Left lower quadrant pain Problem Active [facility] Possible Possible Diagnosis Active [facility] Medications Ordered Medication Name Filled Medication Name Start Date Stop Date Current Medication? Ordering Clinician Indication Dosage Frequency Signature (SIG) Comments Components Source Mirena (52 MG) Mirena (52 MG) Yes Yaw Corrales as directed [facility] Encounters Start Date/Time End Date/Time Encounter Type Admission Type Attending Clinicians Care Facility Care Department Encounter ID Source 2018-10-15 09:27:00 2018-10-15 09:27:00 [facility] [id number] [facility] 2018-02-23 09:30:00 2018-02-23 09:30:00 [facility] [id number] [facility] 2017-12-11 10:25:00 2017-12-11 10:25:00 [facility] [id number] [facility] 2017-11-29 11:00:00 2017-11-29 11:00:00 [facility] [id number] [facility] 2017-10-31 15:13:00 2017-10-31 15:13:00 [facility] [id number] [facility] 2017-10-30 08:20:00 2017-10-30 08:20:00 [facility] [id number] [facility] 2017-09-06 13:01:00 2017-09-06 13:01:00 [facility] [id number] [facility] 2017-07-28 10:30:00 2017-07-28 10:30:00 [facility] [id number] [facility]
[2023-03-29 23:42] LABS: Absolute Lymphocytes (CBC) 2.4 K/uL (0.7-4.9); Hematocrit 37.4 % (36.0-45.0); Lymphocytes % 27.9 % (15.3-44.8); MCV 89.7 fL (80-100); MPV 8.2 fL (7.6-11.3); Platelets 221 thou/uL (152-406); RBC Red Blood Cell Count 4.17 M/uL (3.86-4.86)
[2023-03-29 23:43] LABS: Specific Gravity 1.007 (1.005-1.030)
[2023-03-29 23:51] LABS: Specific Gravity 1.007 (1.005-1.030); Urine Bacteria None Seen /HPF (<20); Urine Bilirubin NEGATIVE (Negative); Urine Blood 3+ (Negative); Urine Clarity Turbid (Clear); Urine Color Colorless (Yellow); Urine Glucose NEGATIVE (Negative); Urine Mucus Slight /HPF (None Seen); Urine Protein NEGATIVE (Negative); Urine Urobilinogen Normal (Normal)
[2023-03-30 00:13] LABS: Albumin 3.8 g/dL (3.4-5.0); Bilirubin Total 1.1 mg/dL (0.2-1.0); Protein, Total 7.4 g/dL (6.4-8.2)
[2023-03-30 00:16] LABS: Potassium 4.8 mEq/L (3.5-5.1)
--- NOTE | 2023-03-30 01:12 | EDPHYS ---
Physician Documentation [facility] Name: Clementine Pope Age: 32 yrs Sex: Female : 1990 Arrival Date: 03/29/2023 Time: 22:50 Bed 16 Private MD: ED Physician Goldy Ballard HPI: 03/30 00:22 This 32 yrs old Female presents to ER via Ambulatory with complaints of possible kb miscarriage, Abdominal Pain, Vaginal Bleeding. 00:24 Patient is a 32-year-old female who presents for right lower quadrant pain that started kb last night. Reports nausea and 1 episode of vomiting. States she was 4 days late on her period, which has been irregular, so she believes she is having an ectopic .. SEAMAN: 03/29 23:20 LMP 02/24/2023, unknown km8 Historical: - Allergies: 23:17 No Known Allergies; km8 - Home Meds: 23:17 None [Active]; km8 - PMHx: 23:17 Anxiety; Ovarian cyst; PID; km8 - PSHx: 23:17 None; km8 - Immunization history:: Client reports having NOT received the Covid vaccine. Flu vaccine is not up to date. - Social history:: Smoking status: Patient denies any tobacco usage or history of. Patient/guardian denies using alcohol, street drugs. ROS: 03/30 00:23 Constitutional: Negative for fever, chills, and weight loss, kb Abdomen/GI: Positive for abdominal pain, nausea and vomiting, Negative for diarrhea, All other systems are negative, Exam: 00:23 Constitutional: This is a well developed, well nourished patient who is awake, alert, kb and in no acute distress. Head/Face: Normocephalic, atraumatic. ENT: Moist Mucous membranes Cardiovascular: Regular rate Respiratory: Respirations even and unlabored. No increased work of breathing. Talking in full sentences Skin: Warm, dry with normal turgor. Normal color. MS/ Extremity: Pulses equal, no cyanosis. Neurovascular intact. Full, normal range of motion. Neuro: Awake and alert, GCS 15, oriented to person, place, time, and situation. Moves all extremities. Normal gait. 00:23 Abdomen/GI: Inspection: abdomen appears normal, Bowel sounds: normal, in all quadrants, Palpation: soft, in all quadrants, moderate abdominal tenderness, in the suprapubic area, right lower quadrant and left lower quadrant, Vital Signs: 03/29 23:16 BP 117 / 67; Pulse 82; Resp 16; Temp 98.2(O); Pulse Ox 100% on R/A; Weight 68.04 kg km8 (R); Height 5 ft. 5 in. (R); Pain 8/10; 23:30 BP 106 / 61; Pulse 70; Resp 17 S; Pulse Ox 100% on R/A; ha1 03/30 00:10 BP 109 / 60; Pulse 71; Resp 17 S; Pulse Ox 100% on R/A; ha1 01:05 BP 102 / 59; Pulse 71; Resp 17; Pulse Ox 100% on R/A; ha1 03/29 23:16 Body Mass Index 24.96 (68.04 kg, 165.1 cm) km8 03/29 23:16 Pain Scale: Adult km8 MDM: 03/29 22:56 Patient medically screened. kb 03/30 00:23 Differential diagnosis: appendicitis, Ectopic , non-specific abd pain, urinary kb tract infection. Data reviewed: vital signs, nurses notes. 01:11 Counseling: I had a detailed discussion with the patient and/or guardian regarding the kb historical points, exam findings, and any diagnostic results supporting the discharge/admit diagnosis, lab results, radiology results, the need for outpatient follow up, an OB/Gyne specialist, to return to the emergency department if symptoms worsen or persist or if there are any questions or concerns that arise at home. 03/29 23:07 Order name: CBC with Diff; Complete Time: 23:52 kb 03/29 23:07 Order name: CMP; Complete Time: 00:17 kb 03/29 23:07 Order name: Test, Urine; Complete Time: 23:52 kb 03/29 23:07 Order name: Urinalysis w/ reflexes; Complete Time: 23:52 kb 03/30 00:58 Order name: Glucose, Ancillary Testing; Complete Time: 01:01 EDMS 03/29 23:52 Order name: CT Abd/Pelvis - IV Contrast Only kb 03/29 23:07 Order name: IV Saline Lock; Complete Time: 23:39 kb 03/29 23:07 Order name: Labs collected and sent; Complete Time: 23:39 kb 03/30 00:17 Order name: Blood Glucose Level; Complete Time: 01:04 kb Administered Medications: 00:07 Drug: NS 0.9% IV 1000 ml IV at 1000 ml once Route: IV; Rate: 1000 ml; Site: left ha1 antecubital; Follow up: Response: No adverse reaction; IV Status: Completed infusion; IV Intake: ha1 1000ml 01:15 Drug: Ondansetron IVP 4 mg IVP once; over 2 minutes Route: IVP; Site: left antecubital; ha1 01:28 Follow up: Response: No adverse reaction; Marked relief of symptoms; Nausea is decreasedha1 01:17 Drug: Ketorolac IVP 15 mg IVP once Route: IVP; Site: left antecubital; ha1 01:29 Follow up: Response: No adverse reaction; Pain is decreased ha1 Disposition Summary: 03/30/23 01:11 Discharge Ordered Notes: Location: Home kb Condition: Stable kb Diagnosis - Lower abdominal pain, unspecified kb Followup: kb - With: Emergency Department - When: As needed - Reason: Worsening of condition Followup: kb - With: Private Physician - When: 2 - 3 days - Reason: Recheck today's complaints, Continuance of care, Re-evaluation by your physician Discharge Instructions: - Discharge Summary Sheet kb - Pelvic Pain, Female, [id number] kb - Abdominal Pain, Adult, Jsrn-[id number] kb Forms: - Medication Reconciliation Form kb - Thank You Letter kb - Antibiotic Education kb - Prescription Opioid Use kb - Patient Portal Instructions kb - Leadership Thank You Letter kb Signatures: Dispatcher [employer] ED[facility] Clara Casas, ELISABETH-C [employer] FABRICATOR ASSEMBLER-Shelley Kinney, RN RN ha1 Goldy Ballard MD MD ec2 Lianet Henry RN RN km8 Corrections: (The following items were deleted from the chart) 00:24 00:23 Abdomen/GI: Positive for abdominal pain, Negative for nausea, vomiting, and kb diarrhea, kb 01:02 00:54 ED course: Patient signed out to me with pending CT imaging. Plan is to follow-up ec2 CT imaging and reassess. Likely discharge home with reassuring imaging.. ec2 01:02 00:59 ED course: Lab work is remarkable for reassuring metabolic profile. Urine is ec2 noninfectious appearing. CBC is reassuring. testing negative. . ec2 01:02 00:59 Transition of care: Care assumed from Clara SARAVIA ec2 ec2
--- NOTE | 2023-03-30 01:12 | ER ---
Nurse's Notes [facility] Name: Clementine Pope Age: 32 yrs Sex: Female : 1990 Arrival Date: 03/29/2023 Time: 22:50 Bed 16 Private MD: Diagnosis: Lower abdominal pain, unspecified Presentation: 03/29 23:16 Chief complaint: Patient states: right lower ABD pain starting last night with n/v and km8 constipation; denies fever/chills; pt also reports a migraine and vaginal bleeding. Coronavirus screen: Client denies travel out of the [place] in the last 14 days. Ebola Screen: No symptoms or risks identified at this time. Initial Sepsis Screen: Does the patient meet any 2 criteria? No. Patient's initial sepsis screen is negative. Does the patient have a suspected source of infection? No. Patient's initial sepsis screen is negative. Risk Assessment: Do you want to hurt yourself or someone else? Patient reports no desire to harm self or others. Onset of symptoms was March 28, 2023. 23:16 Method Of Arrival: Ambulatory km8 23:16 Acuity: PRANAY 3 km8 Triage Assessment: 23:17 General: Appears in no apparent distress. uncomfortable, Behavior is calm, cooperative, km8 appropriate for age. Pain: Complains of pain in head and right lower ABD Pain currently is 8 out of 10 on a pain scale. EENT: No signs and/or symptoms were reported regarding the EENT system. Neuro: Level of Consciousness is awake, alert, obeys commands, Oriented to person, place, time, situation, Reports headache. Cardiovascular: Denies chest pain, shortness of breath, Capillary refill < 3 seconds Patient's skin is warm and dry. Respiratory: Airway is patent Respiratory effort is even, unlabored, Respiratory pattern is regular, symmetrical. GI: Reports lower abdominal pain, constipation, nausea, vomiting. : Reports vaginal bleeding that is moderate flow. Derm: Skin is intact, is healthy with good turgor, Skin is dry, Skin is pink, warm \T\ dry. normal, Skin temperature is warm. Musculoskeletal: Circulation, motion, and sensation intact. Range of motion: intact in all extremities. 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 Flu vaccine is not up to date. - Social history:: Smoking status: Patient denies any tobacco usage or history of. Patient/guardian denies using alcohol, street drugs. Screenin/18 01:25 [facility] ED Fall Risk Assessment (Adult) History of falling in the last 3 months, ha1 including since admission No falls in past 3 months (0 pts) Confusion or Disorientation No (0 pts) Intoxicated or Sedated No (0 pts) Impaired Gait No (0 pts) Mobility Assist Device Used No (0 pt) Altered Elimination No (0 pt) Score/Fall Risk Level 0 - 2 = Low Risk Oriented to surroundings, Maintained a safe environment, Hourly rounding (assess needs \T\ fall precautionary measures) done. Abuse screen: Denies threats or abuse. Denies injuries from another. Nutritional screening: No deficits noted. Tuberculosis screening: No symptoms or risk factors identified. Assessment: 03/29 23:20 General: Appears uncomfortable. Pain: Complains of pain in right lower quadrant Pain ha1 does not radiate. Pain currently is 8 out of 10 on a pain scale. Quality of pain is described as throbbing. Neuro: Level of Consciousness is awake, alert, obeys commands, Oriented to person, place, time, situation. Cardiovascular: Capillary refill < 3 seconds Patient's skin is warm and dry. Respiratory: Airway is patent Respiratory effort is even, unlabored, Respiratory pattern is regular, symmetrical. Derm: Skin is pink, warm \T\ dry. Musculoskeletal: Circulation, motion, and sensation intact. Range of motion: intact in all extremities. 23:20 GI: Abdomen is flat, non-distended, Bowel sounds present X 4 quads. Abd is soft and non ha1 tender X 4 quads. Reports lower abdominal pain, nausea, vomiting. 03/30 00:20 Reassessment: Patient and/or family updated on plan of care and expected duration. Pain ha1 level reassessed. Patient is alert, oriented x 3, equal unlabored respirations, skin warm/dry/pink. 01:05 Reassessment: Patient and/or family updated on plan of care and expected duration. Pain ha1 level reassessed. Patient is alert, oriented x 3, equal unlabored respirations, skin warm/dry/pink. Vital Signs: 03/29 23:16 BP 117 / 67; Pulse 82; Resp 16; Temp 98.2(O); Pulse Ox 100% on R/A; Weight 68.04 kg km8 (R); Height 5 ft. 5 in. (R); Pain 8/10; 23:30 BP 106 / 61; Pulse 70; Resp 17 S; Pulse Ox 100% on R/A; ha1 03/30 00:10 BP 109 / 60; Pulse 71; Resp 17 S; Pulse Ox 100% on R/A; ha1 01:05 BP 102 / 59; Pulse 71; Resp 17; Pulse Ox 100% on R/A; ha1 03/29 23:16 Body Mass Index 24.96 (68.04 kg, 165.1 cm) [facility] 03/29 23:16 Pain Scale: Adult [facility] ED Course: 03/29 22:55 Patient arrived in ED. gm2 22:55 [facility]C [facility] kb 22:55 Goldy Ballard MD is Attending Physician. kb 23:17 Triage completed. km8 23:20 Arm band placed on right wrist. km8 23:20 Patient has correct armband on for positive identification. Placed in gown. Bed in low ha1 position. Call light in reach. Side rails up X 1. 23:28 Shelley Lockett, SWATHI is Primary Nurse. ha1 23:37 Inserted saline lock: 20 gauge in left antecubital area, using aseptic technique. Blood oe collected. 23:39 CBC with Diff Sent. ha1 23:39 CMP Sent. ha1 23:39 Test, Urine Sent. ha1 23:39 Urinalysis w/ reflexes Sent. ha1 03/30 00:47 CT Abd/Pelvis - IV Contrast Only In Process Unspecified. EDMS 01:25 No provider procedures requiring assistance completed. IV discontinued, intact, ha1 bleeding controlled, No redness/swelling at site. Pressure dressing applied. 01:26 Provided Education on: following up with PCP. ha1 Administered Medications: 00:07 Drug: NS 0.9% IV 1000 ml IV at 1000 ml once Route: IV; Rate: 1000 ml; Site: left ha1 antecubital; 01:28 Follow up: Response: No adverse reaction; IV Status: Completed infusion; IV Intake: ha1 1000ml 01:15 Drug: Ondansetron IVP 4 mg IVP once; over 2 minutes Route: IVP; Site: left antecubital; ha1 01:28 Follow up: Response: No adverse reaction; Marked relief of symptoms; Nausea is decreasedha1 01:17 Drug: Ketorolac IVP 15 mg IVP once Route: IVP; Site: left antecubital; ha1 01:29 Follow up: Response: No adverse reaction; Pain is decreased ha1 Medication: 00:41 VIS not applicable for this client. ha1 Intake: 01:28 IV: 1000ml; Total: 1000ml. ha1 Outcome: 01:11 Discharge ordered by . kevin 01:27 Discharged to home ambulatory, ha1 01:27 Condition: stable 01:27 Discharge instructions given to patient, family, Instructed on discharge instructions, follow up and referral plans. Demonstrated understanding of instructions, follow-up care, 01:29 Patient left the ED. ha1 Signatures: Dispatcher [employer] EDMS Clara Casas, ELISABETH-C PREPARING BOX TENDER-Joseph Watt Heidy RN RN ha1 Minoo Saunders 2 Lianet Henry RN RN km8
[2023-03-30 07:03] VITALS: BP 102/59; TEMP 98.2; O2SAT 100
--- NOTE | 2023-03-30 15:41 | RAD REPORT ---
EXAM DESCRIPTION: CT - Abdomen Pelvis W Contrast - 03/30/2023 6:33 am CLINICAL HISTORY: The patient is 32 years old and is Female; LOWER ABD PAIN IV ONLY Bed Name: 1 6 TECHNIQUE: Axial computed tomography images of the abdomen and pelvis with intravenous contrast. S agittal and coronal reformatted images were created and reviewed. This CT exam was performed using one or more of the following dose reduction techniques: automated exposure control, adjustment of t he mA and/or kV according to patient size, and/or use of iterative reconstruction technique. COMPARISON: No relevant prior studies available. FINDINGS: LUNG BASES: Unremarkable No mass. No consolidation. ABDOMEN: LIVER: Tiny focus of fatty infiltration along the right aspect of the falciform ligament. No other focal hepatic parenchymal abnormality. GALLBLADDER AND BILE DUCTS: Unremarkable No calcified stones. No ductal dilation. PANCREAS: Unremarkable No mass. No ductal dilation. SPLEEN: Unremarkable No splenomegaly. ADRENALS: Unremarkable No mass. KIDNEYS AND URETERS: Unremarkable No solid mass. No hydronephrosis. STOMACH AND BOWEL: Unremarkable No obstruction. No mucosal thickening. PELVIS: APPENDIX: Presumed appendectomy with pericecal surgical clips and no abnormal appendix identified. BLADDER: Unremarkable No mass. REPRODUCTIVE: Unremarkable as visualized. ABDOMEN and PELVIS: INTRAPERITONEAL SPACE: Trace free intrapelvic fluid, within physiologic limits. No free air. BONES/JOINTS: See above. SOFT TISSUES: Unremarkable VASCULATURE: Distention of the gonadal veins bilaterally, with left measuring up to 1.4 cm just pro ximal to the left gonadal renal venous confluence. Nonspecific, but can be seen with pelvic congestio n syndrome. Clinical correlation recommended. No abdominal aortic aneurysm. LYMPH NODES: Unremarkable No enlarged lymph nodes. IMPRESSION: 1. Distention of the gonadal veins bilaterally, with left measuring up to 1.4 cm just proximal to the left gonadal renal venous confluence. Nonspecific, but can be seen with pelvic conges tion syndrome. 2. Otherwise, no acute findings in the abdomen or pelvis. Electronically signed by: Jose J Rodriguez MD 03/30/2023 01:00 AM ESTHETIC DERMATOLOGIST Due to temporary technical issues with the PACS/Fluency reporting system, reports are being signed by the in house radiologist without review as a courtesy to ensure prompt reporting. The interpreting r adiologist is fully responsible for the content of the report.
== END ==
LOC: ER 22:50
DX: R10.31 Right lower quadrant pain (principal); R11.2 Nausea with vomiting, unspecified; Z28.310 Unvaccinated for COVID-19
CPT/HCPCS: 36415; 74177; 80053; 81001; 81025; 85025; Q9967